=== PATIENT | female | born 1950 | race Caucasian/White ===

== ENCOUNTER 2017-07-18 10:25 | Outpatient (CLI) | payer MEDICARE ==
--- NOTE | 2017-07-22 12:24 | Mammography Report ---
DIGITAL SCREENING MAMMOGRAPHY: 07/18/2017 COMPARISON: 04/12/2011 TECHNIQUE: Bilateral digital CC, exaggerated CC, and MLO projections are performed. FINDINGS: There is extensive fatty replacement of the breast tissue. There is no dominant mass, arc hitectural distortion, skin thickening, suspicious microcalcifications, or significant interval kyle e. IMPRESSION: NEGATIVE. BIRADS CATEGORY 1. SUGGEST ROUTINE FOLLOWUP IN 12 MONTHS. STANDARD QUALIFYING STATEMENTS 1. This examination was reviewed with the aid of Computer-Aided Detection (CAD). 2. A negative or benign imaging report should not delay biopsy if clinically suspicious findings are present. Consider surgical consultation if warranted. More than 5% of cancers are not identified by i maging. 3. Dense breasts may obscure an underlying neoplasm. JOB #: [id number] EXT JOB #:[id number]
== END 2017-07-18 10:26 | disposition home or self-care (01) ==
LOC: DI.N 10:25
PROVIDERS: ATTEND Internal Medicine
DX: Z12.31 Encounter for screening mammogram for malignant neoplasm of breast (principal)
CPT/HCPCS: 77067

== ENCOUNTER 2017-08-08 13:20 | Outpatient (CLI) | payer MEDICARE ==
[2017-08-08] MEDS ORDERED: ALBUTEROL NEB 2.5 MG/3 ML INH ONE (14:00)
== END 2017-08-08 13:21 | disposition home or self-care (01) ==
LOC: RT 13:20
PROVIDERS: ATTEND Internal Medicine
DX: J44.9 Chronic obstructive pulmonary disease, unspecified (principal)
CPT/HCPCS: 93005; 94060; J7613

== ENCOUNTER 2017-10-22 12:16 | Outpatient (CLI) | payer MEDICARE ==
--- NOTE | 2017-10-22 13:49 | XRAY Report ---
EXAM: TWO VIEW CHEST: 10/22/2017 CLINICAL INDICATION: COPD. FINDINGS: Frontal and lateral views of the chest demonstrate a normal cardiac silhouette. The lungs are hyperinflated, compatible with COPD. Mild fibrotic changes are present. No effusion or pneumothorax is seen. IMPRESSION: COPD, WITH MILD FIBROSIS. MD MITCHEL Bingham/JUSTO TD: 10/22/2017 13:46 MTDD
== END 2017-10-22 12:17 | disposition home or self-care (01) ==
LOC: DI 12:16
PROVIDERS: ATTEND Internal Medicine
DX: J44.9 Chronic obstructive pulmonary disease, unspecified (principal)
CPT/HCPCS: 71020

== ENCOUNTER 2018-11-24 08:01 | Outpatient (CLI) | payer MEDICARE ==
--- NOTE | 2018-11-24 14:19 | Ultrasound Report ---
Reason: UNSPECIFIED ABDOMINAL PAIN Procedure Date: 11/24/2018 Accession Number: [id number] / [id number] Procedure: US - Abdomen Complete CPT Code: FULL RESULT: EXAM: ABDOMEN ULTRASOUND EXAM DATE: 11/24/2018 09:28 AM. CLINICAL HISTORY: Unspecified abdominal pain. COMPARISON: None. TECHNIQUE: Real-time scanning was performed with static images obtained. FINDINGS: Liver: Enlarged in size with echogenic parenchyma with focal fatty sparing in the gallbladder region. Right lobe of the liver measures at least 22 cm. Main portal vein flow: Hepatopetal. Gallbladder: Cholelithiasis as well as adenomyomatosis. Biliary System: Common bile duct measures 8 mm. Mildly enlarged. Pancreas: Visualized portion is unremarkable. Kidneys: Right: 11.5 cm longitudinally. Normal. No contour-deforming mass, stones, or hydronephrosis. Left: 9.9 cm longitudinally. Limited visualization with lobular contour and likely prominent column. No stones, or hydronephrosis. Spleen: 11.8 cm. Normal in size and echotexture. Aorta and Inferior Vena Cava: Unremarkable. Other: None. IMPRESSION: Hepatic steatosis. Cholelithiasis with CBD larger caliber than expected, possible choledocholithiasis which is not visualized directly. Adenomyomatosis. RADIA
== END 2018-11-24 08:02 | disposition home or self-care (01) ==
LOC: DI 08:01
PROVIDERS: ATTEND Internal Medicine
DX: K76.0 Fatty (change of) liver, not elsewhere classified (principal); K82.8 Other specified diseases of gallbladder; J44.9 Chronic obstructive pulmonary disease, unspecified
CPT/HCPCS: 71046; 76700

== ENCOUNTER 2018-11-24 08:04 | Outpatient (CLI) | payer MEDICARE ==
--- NOTE | 2018-11-24 16:00 | XRAY Report ---
Reason: CHRONIC OBSTRUCTIVE PULMONARY DISEASE, UNSPECIFIED Procedure Date: 11/24/2018 Accession Number: [id number] / [id number] Procedure: XR - Chest 2 View X-Ray CPT Code: 15874 FULL RESULT: EXAM: CHEST RADIOGRAPHY EXAM DATE: 11/24/2018 08:42 AM. CLINICAL HISTORY: CHRONIC OBSTRUCTIVE PULMONARY DISEASE, UNSPECIFIED. COMPARISON: CHEST 2 VIEW PA/LAT 10/22/2017 12:19 PM. TECHNIQUE: 2 views. FINDINGS: Lungs/Pleura: Bilateral basilar scarring.. No pleural effusion. No pneumothorax. Increased AP diameter and flattened hemidiaphragms Mediastinum: Heart and mediastinal contours are unremarkable. Other: DJD spine. Compressions of lower T-spine IMPRESSION: 1. COPD. 2. No active cardiopulmonary disease RADIA
== END 2018-11-24 08:05 | disposition home or self-care (01) ==
LOC: DI 08:04
PROVIDERS: ATTEND Internal Medicine
DX: J44.9 Chronic obstructive pulmonary disease, unspecified (principal)
CPT/HCPCS: 71046

== ENCOUNTER 2018-12-29 06:08 | Day surgery (SDC) | payer MEDICARE ==
[2018-12-29] MEDS ORDERED: LACTATED RINGERS 1,000 ML IV ONE ×2 (06:31→08:42)
[2018-12-29] MEDS ORDERED: BUPIVACAINE 0.5% PF 30 ML VIAL ONE (06:53)
[2018-12-29] MEDS ORDERED: IOTHALAMATE MEGLUMINE 50 ML VIAL ONE (06:54)
--- NOTE | 2018-12-29 07:01 | ANESTHESIA ---
Pre-Anesthesia VS, & Labs - Diagnosis Cholelithiasis, Umbilical hernia - Procedure Laparoscopic cholecystectomy, umbilical hernia repair Vital Signs: Temp Pulse Resp BP Pulse Ox 36.6 C 103 H 20 144/93 H 94 12/29/18 06:40 12/29/18 06:40 12/29/18 06:40 12/29/18 06:40 12/29/18 06:40 Height 56 ft Weight (kg) 145 kg Body Mass Index 46.1 - NPO Last Fluid Intake: H2O@0500 Last Food Intake: >8h - Is Patient ?: No - Lab Results Current Lab Results: Laboratory Tests 12/29/18 06:49: POC Whole Bld Glucose 133 H Lab results reviewed: Yes Home Medications and Allergies Home Medications: Ambulatory Orders Glucosamine/D3/Boswellia Maddison [Osteo Bi-Flex Tablet] 1 each PO DAILY 12/25/18 Losartan/Hydrochlorothiazide [Losartan-Hctz 100-25 mg Tab] 1 each PO DAILY 12/25/18 Montelukast Sodium 10 mg PO DAILY PRN 12/25/18 Multivitamin [Multiple Vitamins] 1 each PO DAILY 12/25/18 Semaglutide [Ozempic] 0.25 mg SQ ONCE 12/25/18 Levothyroxine [Synthroid] 200 mcg PO QDAC 12/29/18 Albuterol Sulfate [Proair Hfa Inhaler] 1 - 2 puffs INH Q4H PRN 07/18/17 Cholecalciferol (Vitamin D3) [Vitamin D3] 3,000 unit PO DAILY 07/18/17 Levothyroxine Sodium [Synthroid] 200 mcg PO DAILY 07/18/17 Losartan/Hydrochlorothiazide [Losartan-Hctz 100-25 mg Tab] 1 each PO DAILY 07/18/17 Metformin HCl 250 mg PO DAILY 07/18/17 Glucosamine/D3/Boswellia Maddison [Osteo Bi-Flex Tablet] 1 each PO DAILY 12/25/18 Losartan/Hydrochlorothiazide [Losartan-Hctz 100-25 mg Tab] 1 each PO DAILY 12/25/18 Montelukast Sodium 10 mg PO DAILY PRN 12/25/18 Multivitamin [Multiple Vitamins] 1 each PO DAILY 12/25/18 Semaglutide [Ozempic] 0.25 mg SQ ONCE 12/25/18 Allergies/Adverse Reactions: Allergies Allergy/AdvReac Type Severity Reaction Status Date / Time cefaclor [From [facility]] Allergy Severe Edema Verified 07/18/17 15:37 Anes History & Medical History - Anesthetic History Anesthesia Complications: reports: No previous complications Family history of Anesthesia Complications: Denies Family history of Malignant Hyperthermia: Denies - Medical History Cardiovascular: reports: Hypertension Pulmonary: reports: COPD Gastrointestinal: reports: GERD, Hiatal hernia Urinary: reports: None Musculoskeletal: reports: None Endocrine/Autoimmune: reports: Type 2 diabetes, HyPOthyroidism Skin: reports: Eczema Smoking Status: Former smoker - Surgical History Eyes Ears Nose Throat (EENT): Tonsil/Adenoidectomy Gynecologic: Tubal ligation Exam General: Alert, Oriented x3, Cooperative Dental: Dentures full Upper, Dentures full Lower Mouth Openin Fingerbreadth Mallampati classification: II Thyromental Distance: 4-6 cm Respiratory: Lungs clear, Normal breath sounds, No respiratory distress Cardiovascular: Regular rate Neurological: Normal speech Mental/Cognitive Status: Alert/Oriented X3, Normal for patient Plan Anesthesia Type: General Consent for Procedure(s) Verified and Reviewed: Yes Code Status: Attempt Resuscitation ASA classification: 2-Mild systemic disease Is this case an emergency?: No
[2018-12-29] MEDS ORDERED: CLINDAMYCIN IV 900 MG/50 ML IV ONE (08:00)
[2018-12-29] MEDS ORDERED: BUPIVACAINE 0.5% PF 30 ML VIAL SUBQ ONE (08:16)
[2018-12-29] MEDS ORDERED: LIDOCAINE-MPF 2% 5 ML VIAL IM ONE (08:17)
[2018-12-29] MEDS ORDERED: GLYCOPYRROLATE 1 MG/5 ML VIAL IVP ONE (08:17)
[2018-12-29] MEDS ORDERED: ROCURONIUM 50 MG/5 ML VIAL IVP ONE (08:17)
[2018-12-29] MEDS ORDERED: PROPOFOL 200 MG/20 ML VIAL IVP ONE (08:17)
[2018-12-29] MEDS ORDERED: KETOROLAC 30 MG/ML VIAL IVP ONE (08:17)
[2018-12-29] MEDS ORDERED: ePHEDrine 50 MG/ML VIAL IVP ONE (08:17)
[2018-12-29] MEDS ORDERED: PHENYLEPHRINE 50 MG/5 ML VIAL IV ONE (08:17)
[2018-12-29] MEDS ORDERED: NEOSTIGMINE 1 MG/1 ML 10 ML MDV IVP ONE (08:17)
[2018-12-29] MEDS ORDERED: ONDANSETRON 4 MG/2 ML VIAL IVP ONE (08:17)
[2018-12-29] MEDS ORDERED: fentaNYL 250 MCG/5 ML VIAL IVP ONE (08:17)
[2018-12-29] MEDS ORDERED: MIDAZOLAM 2 MG/2 ML VIAL IVP ONE (08:17)
--- NOTE | 2018-12-29 09:23 | OPERATIVE REPORT ---
Operative Report - General Procedure Date: 12/29/18 Planned Procedure: Laparoscopic cholecystectomy, possible open cholecystectomy, possible commo Pre-Op Diagnosis: Symptomatic cholelithiasis, umbilical hernia Procedure Performed: Laparoscopic cholecystectomy and supraumbilical herniorrhaphy without mesh Post Op Diagnosis: Symptomatic cholelithiasis, supraumbilical hernia, very small (no need to f - Procedure Note Primary Surgeon: Mitchell Ernandez MD Anesthesia Provider: Geoff Barksdale CRNA Anesthesia Technique: General ET tube, Local (30 mL of half percent Marcaine) IV Fluids (mL): 1,200 Estimated Blood Loss (mL): 10 Drain/Tube Type: Other (None.) Complications: None. - Other Other Information/Narrative: OPERATIVE DESCRIPTION/REPORT: After verbal and written informed consent was obtained detailing the risks of infection, bleeding requiring transfusion with its risks, common bile duct injury, and , as well as the markedly increased possibility of a recurrent umbilical hernia, and after I met with the patient confirming the surgery, the patient was brought to the operative suite and placed supine on the operating table. Great care was taken to avoid pressure points to prevent pressure necrosis or nerve injury. Monitoring devices were applied along with TEDs and pneumatic compressive stockings (to prevent DVT). The patient received preoperative antibiotics for surgical prophylaxis. Geoff Barksdale CRNA sedated and anesthetized the patient for the entire procedure. The patient was prepped and draped in the usual sterile manner. A "time in" then confirmed that the patient was identified with 3 identifiers (name, date and medical record number), the history and physical was in the chart, the signed consent confirming the procedure was in the chart, the patient was in the correct position, the aforementioned prophylactic measures were in place or given, we had the correct personnel and equipment to complete the procedure and that anesthesia, surgery and nursing were given an opportunity to express any concerns. With the agreement of everyone in the room, we proceeded with the operation. The initial incision was just above the umbilicus and dissection to a moderate size hernia was completed using blunt dissection. The hernia was dissected back to the fascial defect and the hernia sac as well as the included omentum was excised and sent for pathologic evaluation. Digital examination revealed that there was a extraordinarily tiny umbilical hernia that did not admit even the tip of my finger and as such I opted not to repair it. The hernia defect was too large to allow for placement of the 12 mm blunt-tipped balloon tipped port even with the balloon inflated and as such I started closing the hernia defect using 0 Prolene in a [id number] fashion. Even though I closed this defect enough to admit the 12 mm blunt-tipped port once the port was placed in the balloon inflated there was a constant leak of insufflating carbon dioxide. I attempted to stem this leak with placement of Xeroform gauze. I was mildly successful. The abdominal cavity was insufflated with carbon dioxide to steady- state pressure of 15 mmHg. Three additional 5 mm ports were placed in standard location for laparoscopic cholecystectomy (subxiphoid and 2 right subcostal) under direct vision of the 30 degree laparoscope and without incident. The p atient was then placed in reverse Trendelenburg position and was rotated slightly to their left. Of note, the liver showed all the hallmarks of fatty liver. It was exceedingly thick and large. This of course limited how the gallbladder could be retracted. The patient's body habitus also markedly restricted motion within the abdomen. The gallbladder fundus was grasped with an atraumatic grasper. Multiple adhesions had to be taken down by blunt and sharp dissection along with electrocautery. Eventually, we identified the infundibulum, and this was then grasped and retracted inferior and laterally. Dissection was then begun in the angle of Calot. The cystic duct and (slightly medially and posteriorly) cystic artery were clearly identified. The critical view was obtained. Two clips proximally and one clip distally were used to control both the cystic duct and cystic artery. The clips were carefully placed to avoid occluding the juncture with the common bile duct. Both the cystic duct and then the cystic artery were then transected with laparoscopic deb. The gallbladder was then removed from its fossa in a retrograde fashion using electrocautery. With the 30 degree 5 mm scope in the subxiphoid position, the gallbladder was placed in an EndoCatch bag to be extracted through the 12 mm port site. I irrigated the right upper quadrant with a liter of warm sterile saline, and the area was aspirated dry. I inspected the gallbladder fossa and there was no bleeding or bile leak. Clips on the cystic duct and cystic artery appeared to be secure. I briefly visually explored the abdomen. There was no other evidence of overt pathology. I injected the port sites at the peritoneal, fascial, and skin levels under direct vision with 0.5% Marcaine. All ports and the EndoCatch containing the gallbladder were removed. Following gallbladder removal, the remaining carbon dioxide was expelled from the abdomen. The fascia at the supraumbilical hernia was further reapproximated using 2 bupqtg-pf-pubfi 0 Prolene sutures thus repairing the hernia. Since I did not use mesh (due to the risk of infection) and since there is a markedly higher chance of recurrence due to the patient's BMI of over 50 this repair was oversewn with 0 PDS in a pxyiig-nl-esqox fashion. The subcutaneous tissue at the supraumbilical site was approximated using interrupted 0 PDS sutures. The skin at each port site was approximated using a subcuticular 4-0 Monocryl. The surgical count of instruments, needles and sponges was reported as correct twice. Mastisol, Steri-Strips and sterile surgical dressings were applied. The patient was then awakened from anesthesia, extubated, and having tolerated the procedure well, was transported to the recovery room. No complications were en countered. A "time out" confirmed the operation performed, the fluids given, the estimated blood loss and anesthesia, surgery and nursing were given an opportunity to express any concerns. TRDataon disclaimer: This document was created in part using voice recognition technology. Because of the inherent limitations of the system ([employer] user manual states that the licensee understands that speech recognition is a statistical process and that recognition errors are inherent in the process), occasional same sounding word substitutions and grammatical errors do occur and persist despite proofreading. Please read this document for context.
[2018-12-29] MEDS ORDERED: HYDROmorphone 0.5 MG/0.5 ML SYRINGE IVP PRN (09:36)
[2018-12-29] MEDS ORDERED: HYDROcod/ACETAM 5/325 MG TABLET PO PRN (09:36)
[2018-12-29] MEDS ORDERED: ONDANSETRON 4 MG/2 ML VIAL IVP PRN (09:36)
[2018-12-29 10:39] VITALS: BP 100/60
== END 2018-12-29 06:09 | disposition home or self-care (01) ==
LOC: SDS 06:08
PROVIDERS: ATTEND Surgery
PROC: 0FT44ZZ Resection of Gallbladder, Percutaneous Endoscopic Approach (ICD-10-PCS; principal; 2018-12-29 07:30)
DX: K80.10 Calculus of gallbladder with chronic cholecystitis without obstruction (principal); K42.9 Umbilical hernia without obstruction or gangrene; E66.01 Morbid (severe) obesity due to excess calories; Z68.43 Body mass index [BMI] 50.0-59.9, adult; I10 Essential (primary) hypertension; E11.9 Type 2 diabetes mellitus without complications; J43.9 Emphysema, unspecified; Z87.891 Personal history of nicotine dependence
CPT/HCPCS: 47562; A9270; J3010; J7120

== ENCOUNTER 2019-05-11 15:03 | Emergency (ER) | payer MEDICARE ==
[2019-05-11 15:56] LABS: BASOPHILS # (AUTO) 0.1 10^3/uL (0.0-0.1); BASOPHILS % (AUTO) 0.5 %; EOSINOPHILS # (AUTO) 0.3 10^3/uL (0.0-0.7); EOSINOPHILS % (AUTO) 3.1 %; HGB - HEMOGLOBIN 12.3 g/dL (12.0-16.0); LYMPHOCYTES # (AUTO) 1.6 10^3/uL (1.5-3.5); LYMPHOCYTES % (AUTO) 15.6 %; MEAN CORPUSCULAR HEMOGLOBIN 30.1 pg (27.0-31.0); MEAN CORPUSCULAR HGB CONC 31.2 g/dL (32.0-36.0); MEAN CORPUSCULAR VOLUME 96.6 fL (81.0-99.0); MONOCYTES # (AUTO) 0.8 10^3/uL (0.0-1.0); MONOCYTES % (AUTO) 7.8 %; NEUTROPHILS # (AUTO) 7.4 10^3/uL (1.5-6.6); NEUTROPHILS % (AUTO) 72.3 %; PLT - PLATELET COUNT 267 10^3/uL (130-450); RED BLOOD COUNT 4.08 10^6/uL (4.20-5.40); RED CELL DISTRIBUTION WIDTH 14.1 % (12.0-15.0); WHITE BLOOD COUNT 10.2 x10^3/uL (4.8-10.8)
[2019-05-11] MEDS ORDERED: IPRATROPIUM/ALBUTEROL 3 ML NEB INH STA (16:09)
[2019-05-11 16:14] LABS: ALBUMIN 3.9 g/dL (3.2-5.5); BILIRUBIN,TOTAL 0.7 mg/dL (0.2-1.0); CALCIUM 9.7 mg/dL (8.5-10.3); CREATININE 0.9 mg/dL (0.4-1.0); TOTAL PROTEIN 7.8 g/dL (6.7-8.2)
[2019-05-11 16:38] VITALS: BP 133/60
[2019-05-11] MEDS ORDERED: predniSONE 20 MG TABLET PO STA (16:40)
[2019-05-11] MEDS ORDERED: ALBUTEROL NEB 2.5 MG/3 ML INH STA (16:40)
--- NOTE | 2019-05-11 16:46 | ED Physician Documentation ---
PD HPI DYSPNEA - Stated complaint Stated Complaint: SOA - Chief complaint Chief Complaint: Resp - History obtained from History obtained from: Patient - History of Present Illness Timing - onset: How many weeks ago (1) Timing - onset during: Rest Timing - duration: Weeks (1) Timing - details: Gradual onset Pain level max: 0 Pain level now: 0 Inciting event(s): URI Improved by: Inhaler/neb, Rest Worsened by: Exertion Associated symptoms: Cough, Wheezing. No: Fever, Hemoptysis, Palpitations, Diaphoresis, Bilateral edema Similar symptoms before: Diagnosis (COPD) Recently seen: Clinic (started on azithromycin last week for COPD flare.) Review of Systems Ten Systems: 10 systems reviewed and negative Constitutional: denies: Fever, Chills Throat: denies: Sore throat GI: denies: Vomiting, Diarrhea, Hematemesis Skin: denies: Rash Musculoskeletal: denies: Neck pain, Back pain Neurologic: denies: Headache PD PAST MEDICAL HISTORY - Past Medical History Cardiovascular: Hypertension Respiratory: COPD Endocrine/Autoimmune: Type 2 diabetes, HyPOthyroidism GI: GERD, Hiatal hernia : None HEENT: Chronic vision loss, Other Psych: Claustrophobia Musculoskeletal: None Derm: Eczema - 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 HEENT: Tonsil/Adenoidectomy - Present Medications Home Medications: Ambulatory Orders Medication Instructions Recorded Confirmed Albuterol Sulfate [Proair Hfa 1 - 2 puffs INH Q4H PRN 07/18/17 12/29/18 Inhaler] Cholecalciferol (Vitamin D3) 3,000 unit PO DAILY 07/18/17 12/29/18 [Vitamin D3] Levothyroxine Sodium [Synthroid] 200 mcg PO DAILY 07/18/17 12/25/18 Losartan/Hydrochlorothiazide 1 each PO DAILY 07/18/17 12/25/18 [Losartan-Hctz 100-25 mg Tab] Metformin HCl 250 mg PO DAILY 07/18/17 12/29/18 Glucosamine/D3/Boswellia Maddison 1 each PO DAILY 12/25/18 12/29/18 [Osteo Bi-Flex Tablet] Losartan/Hydrochlorothiazide 1 each PO DAILY 12/25/18 12/29/18 [Losartan-Hctz 100-25 mg Tab] Montelukast Sodium 10 mg PO DAILY PRN 12/25/18 12/29/18 Multivitamin [Multiple Vitamins] 1 each PO DAILY 12/25/18 12/29/18 Semaglutide [Ozempic] 0.25 mg SQ ONCE 12/25/18 12/25/18 Levothyroxine [Synthroid] 200 mcg PO QDAC 12/29/18 12/29/18 predniSONE [Deltasone] 10 mg PO [id number] #42 tab 05/11/19 - Allergies Allergies/Adverse Reactions: Allergies Allergy/AdvReac Type Severity Reaction Status Date / Time cefaclor [From Ceclor] Allergy Severe Edema Verified 07/18/17 15:37 - Social History Smoking Status: Former smoker PD ED PE NORMAL - Vitals Vital signs reviewed: Yes - General General: Alert and oriented X 3, No acute distress, Well developed/nourished - HEENT HEENT: PERRL, Moist mucous membranes - Neck Neck: Supple, no meningeal sign - Cardiac Cardiac: RRR - Respiratory Respiratory: No respiratory distress, Other (Wheezing bilaterally) - Abdomen Abdomen: Soft, Non tender, Non distended - Derm Derm: Warm and dry - Extremities Extremities: No calf tenderness / cord - Neuro Neuro: Alert and oriented X 3 - Psych Psych: Normal mood, Normal affect Results - Vitals Vitals: Vital Signs - 24 hr 05/11/19 05/11/19 05/11/19 15:06 16:38 17:10 Temperature 36.6 C Heart Rate 95 75 81 Respiratory 20 18 20 Rate Blood Pressure 146/96 H 133/60 H O2 Saturation 92 99 Oxygen O2 Source Room air - Labs Labs: Laboratory Tests 05/11/19 05/11/19 05/11/19 15:50 15:50 15:50 WBC 10.2 RBC 4.08 L Hgb 12.3 Hct 39.4 MCV 96.6 MCH 30.1 MCHC 31.2 L RDW 14.1 Plt Count 267 MPV 9.0 Neut # (Auto) 7.4 H Lymph # (Auto) 1.6 Carbon # (Auto) 0.8 Eos # (Auto) 0.3 Baso # (Auto) 0.1 Absolute Nucleated RBC 0.00 Nucleated RBC % 0.0 Sodium 140 Potassium 3.9 Chloride 98 L Carbon Dioxide 30 Anion Gap 12.0 BUN 19 Creatinine 0.9 Estimated GFR (MDRD) 62 L Glucose 133 H Calcium 9.7 Total Bilirubin 0.7 AST 20 ALT 26 Alkaline Phosphatase 93 Troponin I < 0.04 Total Protein 7.8 Albumin 3.9 Globulin 3.9 Albumin/Globulin Ratio 1.0 Lipase 28 - Rads (name of study) cxr Radiology: Prelim report reviewed, EMP read contemporaneously, See rad report (No acute cardiopulmonary abnormality) PD MEDICAL DECISION MAKING - ED course Complexity details: reviewed results, re-evaluated patient, considered differential, d/w patient ED course: 69-year-old female with a COPD flare. Not hypoxic. No pneumonia on chest x-ray . No fevers. Given prednisone and albuterol treatments here. Will prescribe steroids for home. We will follow-up with her doctor. Patient counseled regarding signs and symptoms for which I believe and urgent re-evaluation would be necessary. Patient with good understanding of and agreement to plan and is comfortable going home at this time This document was made in part using voice recognition software. While efforts are made to proofread this document, sound alike and grammatical errors may occur. Patient is very well-appearing, nontoxic Departure - Departure Disposition: 01 Home, Self Care Clinical Impression: COPD exacerbation Condition: Good Instructions: ED COPD Flare Follow-Up: Michael Chew MD [Primary Care Provider] - Within 1 week Prescriptions: predniSONE [Deltasone] 10 mg PO [id number] #42 tab Comments: Start on the steroids. Return if you worsen. Follow-up with your doctor for further evaluation and care. Continue your inhalers at home. Your x-ray does not show pneumonia today. Discharge Date/Time: 05/11/19 17:45
--- NOTE | 2019-05-11 17:06 | XRAY Report ---
Reason: cough Procedure Date: 05/11/2019 Accession Number: [id number] / [id number] Procedure: XR - Chest 2 View X-Ray CPT Code: 11445 FULL RESULT: EXAM: CHEST RADIOGRAPHY EXAM DATE: 05/11/2019 04:15 PM. CLINICAL HISTORY: Cough. COMPARISON: CHEST 2 VIEW 11/24/2018 8:30 AM. TECHNIQUE: 2 views. FINDINGS: Lungs/Pleura: No focal consolidation. Mild interstitial prominence. No pleural effusion. No pneumothorax. Lungs are mildly hyperinflated. Mediastinum: Heart and mediastinal contours are normal. Other: None. IMPRESSION: No acute cardiopulmonary abnormality. RADIA
== END 2019-05-11 17:45 | disposition home or self-care (01) ==
LOC: ED 15:03
DX: J44.1 Chronic obstructive pulmonary disease with (acute) exacerbation (principal); Z87.891 Personal history of nicotine dependence; I10 Essential (primary) hypertension; E11.9 Type 2 diabetes mellitus without complications; Z79.84 Long term (current) use of oral hypoglycemic drugs
CPT/HCPCS: 36415; 71046; 80053; 83690; 84484; 85025; 94640; 99284; J7512

== ENCOUNTER 2019-07-01 13:39 | Outpatient (CLI) | payer MEDICARE ==
--- NOTE | 2019-07-02 08:44 | DEXA Report ---
Reason: UNSPECIFIED MENOPAUSAL AND PERIMENOPAUSAL DISORDER Procedure Date: 07/01/2019 Accession Number: [id number] / [id number] Procedure: DEX - Dexa Spine and/or Hip CPT Code: FULL RESULT: EXAM: Dexa Spine and/or Hip DATE: 07/01/2019 2:10 PM CLINICAL HISTORY: UNSPECIFIED MENOPAUSAL AND PERIMENOPAUSAL DISORDER TECHNIQUE: Dual energy x-ray absorptiometry (DXA) was performed on a [employer] System. Regions measured are the AP Spine, femoral neck, and if needed forearm. COMPARISON: None. In accordance with the International Society for Clinical Densitometry (ISCD) guidelines, data from previous exams may be reanalyzed using current recommendations and techniques. This is done to allow a more accurate basis for comparison with the current study. FINDINGS: The data for the lumbar spine is as follows: BMD (g/cm/cm) T-SCORE Z-SCORE REGION L1 1.291 1.3 1.9 L2 1.378 1.5 2.0 L3 1.257 0.5 1.0 L4 1.294 0.8 1.3 TOTAL 1.306 1.0 1.6 NOTE: All evaluable vertebrae are used for classification The data for the hip is as follows: BMD (g/cm/cm) T-SCORE Z-SCORE REGION Neck 0.839 -1.4 -0.4 TOTAL 0.972 -0.3 0.4 NOTE: The femoral neck or total proximal femur, whichever is lowest, is used for classification. IMPRESSION: THE WHO CLASSIFICATION BASED ON THE INTERNATIONAL REFERENCE STANDARD IS OSTEOPENIA. THE FRACTURE RISK IS INCREASED. Please note that the assessment of osteopenia is based on the isolated finding in the femoral neck. RECOMMENDATION: Patients with diagnosis of osteoporosis or osteopenia should have regular bone mineral density assessment. For those eligible for Medicare, routine testing is allowed once every 2 years. Testing frequency can be increased for patients who have rapidly progressing disease or for those who are receiving medical therapy to restore bone mass. COMMENT: World Health Organization (WHO) definitions for osteoporosis and osteopenia: NORMAL BMD: T-score at -1.0 or higher, fracture risk is low OSTEOPENIA BMD: T-score between -1.0 and -2.5, fracture risk is increased. OSTEOPOROSIS BMD: T-score at -2.5 or lower, fracture risk is high. National Osteoporosis Foundation recommends: 1. Obtain adequate dietary calcium (at least 1200 mg per day) and vitamin D (400-800 international units per day). 2. Participate, as appropriate, in regular weightbearing and muscle-strengthening exercise. 3. Avoid tobacco use and reduce alcohol and caffeine intake. 4. For more detailed information see the website at www.NOF.org.
== END 2019-07-01 13:40 | disposition home or self-care (01) ==
LOC: DI 13:39
PROVIDERS: ATTEND Internal Medicine
DX: M85.88 Other specified disorders of bone density and structure, other site (principal)
CPT/HCPCS: 77080

== ENCOUNTER 2021-04-25 16:44 | Outpatient (CLI) | payer MEDICARE | END 2021-04-25 16:45 | disposition critical access hospital (66) | LOC: EMS 16:44 | DX: R06.02 Shortness of breath (principal) | CPT/HCPCS: A0425; A0427 ==

== ENCOUNTER 2021-04-25 17:04 | Emergency (ER) | payer BC, MEDICARE ==
[2021-04-25 17:27] LABS: BASOPHILS % (AUTO) 0.5 %; EOSINOPHILS # (AUTO) 0.1 10^3/uL (0.0-0.7); EOSINOPHILS % (AUTO) 1.5 %; HCT - HEMATOCRIT 40.2 % (37.0-47.0); HGB - HEMOGLOBIN 12.3 g/dL (12.0-16.0); LYMPHOCYTES # (AUTO) 1.5 10^3/uL (1.5-3.5); LYMPHOCYTES % (AUTO) 19.1 %; MEAN CORPUSCULAR HEMOGLOBIN 29.4 pg (27.0-31.0); MEAN CORPUSCULAR HGB CONC 30.6 g/dL (32.0-36.0); MEAN CORPUSCULAR VOLUME 96.2 fL (81.0-99.0); MEAN PLATELET VOLUME 8.7 fL (7.9-10.8); MONOCYTES # (AUTO) 0.7 10^3/uL (0.0-1.0); MONOCYTES % (AUTO) 8.2 %; NEUTROPHILS # (AUTO) 5.7 10^3/uL (1.5-6.6); NEUTROPHILS % (AUTO) 70.5 %; PLT - PLATELET COUNT 237 10^3/uL (130-450); RED BLOOD COUNT 4.18 10^6/uL (4.20-5.40); RED CELL DISTRIBUTION WIDTH 15.4 % (12.0-15.0); WHITE BLOOD COUNT 8.1 x10^3/uL (4.8-10.8)
[2021-04-25 17:40] LABS: ALBUMIN 3.6 g/dL (3.2-5.5); ALBUMIN/GLOBULIN RATIO 0.9 (1.0-2.2); BILIRUBIN,TOTAL 0.7 mg/dL (0.2-1.0); CALCIUM 9.3 mg/dL (8.5-10.3); CREATININE 0.9 mg/dL (0.4-1.0); POTASSIUM 3.3 mmol/L (3.5-5.0); TOTAL PROTEIN 7.5 g/dL (6.7-8.2)
[2021-04-25] MEDS ORDERED: ALBUTEROL NEB 2.5 MG/3 ML INH STA (17:55)
[2021-04-25] MEDS ORDERED: IPRATROPIUM/ALBUTEROL 3 ML NEB INH STA (17:55)
--- NOTE | 2021-04-25 17:59 | ED Physician Documentation ---
History of Present Illness - Stated complaint Stated Complaint: SOA - Chief complaint Chief Complaint: Resp - Additonal information Additional information: 71-year-old female presents the emergency department for evaluation of dyspnea and shortness of air with exertion. She reports that symptoms of shortness of breath began about 3 days ago. She has had some associated productive cough but no fevers. She has a history of COPD and was previously taking Dulera but has not taken it for quite some time as she was unable to get it refilled through her primary care provider. She also has a history of chronic lower extremity edema. She was started on Lasix about 1 month ago but has not taken it for the last week as it makes her urinate too much. She denies chest pain or fevers. No abdominal pain nausea vomiting or dysuria. She does use home O2 at night Review of Systems Constitutional: denies: Fever, Chills Eyes: reports: Reviewed and negative Ears: reports: Reviewed and negative Nose: reports: Reviewed and negative Throat: reports: Reviewed and negative Cardiac: reports: Palpitations, Pedal edema. 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 : None HEENT: Chronic vision loss, Other Psych: Claustrophobia Musculoskeletal: None Derm: Eczema - Past Surgical History Past Surgical History: Yes General: Hiatal hernia repair /MAGNETO REPAIRER: Tubal ligation HEENT: Tonsil/Adenoidectomy - Present Medications Home Medications: Ambulatory Orders Medication Instructions Recorded Confirmed Albuterol Sulfate [Proair Hfa 1 - 2 puffs INH Q4H PRN 07/18/17 12/29/18 Inhaler] Cholecalciferol (Vitamin D3) 3,000 unit PO DAILY 07/18/17 12/29/18 [Vitamin D3] Levothyroxine Sodium [Synthroid] 200 mcg PO DAILY 07/18/17 12/25/18 Losartan/Hydrochlorothiazide 1 each PO DAILY 07/18/17 12/25/18 [Losartan-Hctz 100-25 mg Tab] Metformin HCl 250 mg PO DAILY 07/18/17 12/29/18 Glucosamine/D3/Boswellia Maddison 1 each PO DAILY 12/25/18 12/29/18 [Osteo Bi-Flex Tablet] Losartan/Hydrochlorothiazide 1 each PO DAILY 12/25/18 12/29/18 [Losartan-Hctz 100-25 mg Tab] Montelukast Sodium 10 mg PO DAILY PRN 12/25/18 12/29/18 Multivitamin [Multiple Vitamins] 1 each PO DAILY 12/25/18 12/29/18 Semaglutide [Ozempic] 0.25 mg SQ ONCE 12/25/18 12/25/18 Levothyroxine [Synthroid] 200 mcg PO QDAC 12/29/18 12/29/18 predniSONE [Deltasone] 10 mg PO [id number] #42 tab 05/11/19 Doxycycline Hyclate 100 mg PO BID #14 04/25/21 Mometasone/Formoterol [Dulera 100 13 gm IH DAILY #1 04/25/21 Mcg-5 Mcg Inhaler] predniSONE [Deltasone] 40 mg PO DAILY 5 Days #10 tablet 04/25/21 - Allergies Allergies/Adverse Reactions: Allergies Allergy/AdvReac Type Severity Reaction Status Date / Time cefaclor [From [facility]] Allergy Severe Edema Verified 04/25/21 17:18 - Social History Does the pt smoke?: No Smoking Status: Former smoker Does the pt drink ETOH?: Yes Does the pt have substance abuse?: No - Immunizations Immunizations are current?: Yes - POLST Patient has POLST: No PD ED PE EXPANDED - General General: Alert, No acute distress, Other (obese) - Cardiac Cardiac: Regular Rate, Murmur Present, Radial strong equal, Pedal strong equal, Cap refill < 2 sec - Respiratory Respiratory: Clear to ausultation rad, Wheezing. No: Distress, Labored - Abdomen Abdomen: Normal Bowel sounds, Tender to palpation - Extremities Extremities: Normal, Pedal edema bilateral (Significant bilateral lower extremity edema with compression stockings in place. Warm feet 2+ DP pulses bilaterally). No: Deformity, Tenderness - Neuro Neuro: Alert and Oriented X 3, CNII-XII intact - GCS Eye Opening: Spontaneous Motor: Abnormal Flexion Verbal: Oriented Total: 12 Results - Vitals Vitals: Vital Signs - 24 hr 04/25/21 04/25/21 04/25/21 17:00 17:18 18:10 Temperature 36.8 C 36.8 C Heart Rate 81 72 64 Respiratory 20 24 18 Rate Blood Pressure 135/77 H 138/67 H O2 Saturation 96 99 Oxygen O2 Source Nasal cannula - EKG (time done) 1721 Rate: Rate (enter#) (82) - Labs Labs: Laboratory Tests 04/25/21 04/25/21 04/25/21 17:22 17:22 17:22 WBC 8.1 RBC 4.18 L Hgb 12.3 Hct 40.2 MCV 96.2 MCH 29.4 MCHC 30.6 L RDW 15.4 H Plt Count 237 MPV 8.7 Neut # (Auto) 5.7 Lymph # (Auto) 1.5 Tyrrell # (Auto) 0.7 Eos # (Auto) 0.1 Baso # (Auto) 0.0 Absolute Nucleated RBC 0.00 Nucleated RBC % 0.0 Sodium 141 Potassium 3.3 L Chloride 97 L Carbon Dioxide 34 H Anion Gap 10.0 BUN 16 Creatinine 0.9 Estimated GFR (MDRD) 61 L Glucose 162 H Calcium 9.3 Total Bilirubin 0.7 AST 15 ALT 16 Alkaline Phosphatase 103 Troponin I High Sens 9.2 B-Natriuretic Peptide Total Protein 7.5 Albumin 3.6 Globulin 3.9 Albumin/Globulin Ratio 0.9 L Lipase 27 04/25/21 17:22 WBC RBC Hgb Hct MCV MCH MCHC RDW Plt Count MPV Neut # (Auto) Lymph # (Auto) Tyrrell # (Auto) Eos # (Auto) Baso # (Auto) Absolute Nucleated RBC Nucleated RBC % Sodium Potassium Chloride Carbon Dioxide Anion Gap BUN Creatinine Estimated GFR (MDRD) Glucose Calcium Total Bilirubin AST ALT Alkaline Phosphatase Troponin I High Sens B-Natriuretic Peptide 86 Total Protein Albumin Globulin Albumin/Globulin Ratio Lipase - Rads (name of study) CXR Radiology: Final report received (no acute findings) PD MEDICAL DECISION MAKING - ED course Complexity details: reviewed results, re-evaluated patient, d/w patient ED course: 71-year-old female presents the emergency department with 3 days exertional dyspnea and shortness of air. This is in the setting of a history of COPD. She had stopped taking her Lasix because she did not like urinating so much. In addition to that she has not had her Dulera for about a month as she was unable to see the doctor for a refill Chest x-ray does not reveal acute abnormality. BNP and Troponin are not elevated. Patient was given 40 mg of Lasix here in the emergency department as well as albuterol and Atrovent with marked improvement in her symptoms. She is not hypoxic. Baseline saturations of 92 to 94%. She does occasionally wear oxygen at home. Patient will be discharged with a prescription doxycycline observation. Will refill her Dulera and advised compliance with Lasix. Close follow-up with PCP advised. Emergent return precautions discussed Departure - Departure Disposition: Home, Self Care Clinical Impression: COPD exacerbation Condition: Stable Record reviewed to determine appropriate education?: Yes Instructions: COPD Dc Follow-Up: Michael Chew MD [Primary Care Provider] - Prescriptions: predniSONE [Deltasone] 40 mg PO DAILY 5 Days #10 tablet Doxycycline Hyclate 100 mg PO BID #14 Mometasone/Formoterol [Dulera 100 Mcg-5 Mcg Inhaler] 13 gm IH DAILY #1 Comments: Shey you are seen today in the ER did not please fill the prescription for the prednisone and begin taking as directed tomorrow. Your first dose was given here in the ER. Also fill the prescription for the antibiotics. It is important that you continue to take your furosemide as that will help reduce the work of for your heart. Discuss this ED visit with your primary care provider. I have refilled your Dulera today.. If you have worsenign shortness of breath, fevers, chest pain or difficulty breathing please return to the ED
[2021-04-25] MEDS ORDERED: FUROSEMIDE 40 MG/4 ML VIAL IVP STA (18:19)
--- NOTE | 2021-04-25 18:28 | XRAY Report ---
PROCEDURE: Chest 1 View X-Ray INDICATIONS: Chest Pain TECHNIQUE: One view of the chest was acquired. COMPARISON: May 11, 2019 FINDINGS: Surgical changes and devices: None. Lungs and pleura: No pleural effusions or pneumothorax. Lungs are clear. Mediastinum: Mediastinal contours appear normal. Heart size is normal. Bones and chest wall: No suspicious bony lesions. Overlying soft tissues appear unremarkable. IMPRESSION: No acute cardiopulmonary findings Reviewed by: Bryson Feng MD on 04/25/2021 5:27 PM AKDT Approved by: Bryson Feng MD on 04/25/2021 5:27 PM AKDT Station ID: [id number]
[2021-04-25] MEDS ORDERED: predniSONE 20 MG TABLET PO STA (20:04)
[2021-04-25 20:38] VITALS: BP 129/76
== END 2021-04-25 20:22 | disposition home or self-care (01) ==
LOC: EDUNIT# → ED 17:04 → SUPCPDRO 17:04 → ED 20:22
DX: J44.1 Chronic obstructive pulmonary disease with (acute) exacerbation (principal); R60.0 Localized edema; I49.3 Ventricular premature depolarization; I10 Essential (primary) hypertension; E11.9 Type 2 diabetes mellitus without complications; Z79.84 Long term (current) use of oral hypoglycemic drugs; Z87.891 Personal history of nicotine dependence
CPT/HCPCS: 36415; 71045; 80053; 83690; 83880; 84484; 85025; 93005; 94640; 96374; 99283; 99284; J7512

== ENCOUNTER 2021-07-11 18:58 | Outpatient (CLI) | payer MEDICARE | END 2021-07-11 18:59 | disposition critical access hospital (66) | LOC: EMS 18:58 | DX: R60.0 Localized edema (principal); M79.662 Pain in left lower leg; M79.661 Pain in right lower leg; R23.8 Other skin changes | CPT/HCPCS: A0425; A0429 ==

== ENCOUNTER 2021-07-11 19:17 | Inpatient (IN) | payer MEDICARE ==
--- NOTE | 2021-07-11 19:34 | ED Physician Documentation ---
PD HPI DYSPNEA - Stated complaint Stated Complaint: WOUND EDEMA, CAN'T AMBULATE - Chief complaint Chief Complaint: Wound - History obtained from History obtained from: Patient - History of Present Illness Timing - onset: How many weeks ago (6) Timing - onset during: Light activity (Had been noting dyspnea on exertion which has become progressively worse and now it is even dyspnea at rest for the last week or so. Increasing edema in both legs and pain in her heels.) Timing - duration: Weeks (6 weeks progressive KRAUSE, orthopnea, leg edema. Increasing despite now regular diuretic use.) Timing - details: Gradual onset Inciting event(s): No: Out of meds, URI Improved by: O2, Inhaler/neb. No: Lasix (she says not getting much extra urination with her Lasix the past week or so.) Associated symptoms: Wheezing, Bilateral edema (with redness wrapped around both lower legs, and now 1 week or so of progressively worse pain in the heels.). No: Fever, Cough, Hemoptysis, Unilateral edema Recently seen: Emergency Dept (11 weeks ago on April 25.) Review of Systems Constitutional: denies: Fever, Chills Respiratory: reports: Dyspnea, Wheezing, Other (orthopnea) GI: reports: Abdominal Swelling, Nausea, Bloody / black stool (noted some red blood with wiping after formed BMs. No melena.). denies: Vomiting, Constipation, Diarrhea Skin: reports: Rash (redness around both lower legs with blistering. No purulence.) Musculoskeletal: reports: Extremity pain (pain in both heels the past week, progressively worse.) Neurologic: reports: Generalized weakness. denies: Focal weakness, Numbness PD PAST MEDICAL HISTORY - Past Medical History Cardiovascular: Hypertension, Other (no history of MO nor CHF per patient. 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 : None HEENT: Chronic vision loss, Other Psych: Claustrophobia Musculoskeletal: None Derm: Eczema - Past Surgical History Past Surgical History: Yes General: Hiatal hernia repair /RN BUILDING: Tubal ligation HEENT: Tonsil/Adenoidectomy - Present Medications Home Medications: Ambulatory Orders Medication Instructions Recorded Confirmed Albuterol Sulfate [Proair Hfa 1 - 2 puffs INH Q4H PRN 07/18/17 12/29/18 Inhaler] Cholecalciferol (Vitamin D3) 3,000 unit PO DAILY 07/18/17 12/29/18 [Vitamin D3] Levothyroxine Sodium [Synthroid] 200 mcg PO DAILY 07/18/17 12/25/18 Losartan/Hydrochlorothiazide 1 each PO DAILY 07/18/17 12/25/18 [Losartan-Hctz 100-25 mg Tab] Metformin HCl 250 mg PO DAILY 07/18/17 12/29/18 Glucosamine/D3/Boswellia Maddison 1 each PO DAILY 12/25/18 12/29/18 [Osteo Bi-Flex Tablet] Losartan/Hydrochlorothiazide 1 each PO DAILY 12/25/18 12/29/18 [Losartan-Hctz 100-25 mg Tab] Montelukast Sodium 10 mg PO DAILY PRN 12/25/18 12/29/18 Multivitamin [Multiple Vitamins] 1 each PO DAILY 12/25/18 12/29/18 Semaglutide [Ozempic] 0.25 mg SQ ONCE 12/25/18 12/25/18 Levothyroxine [Synthroid] 200 mcg PO QDAC 12/29/18 12/29/18 predniSONE [Deltasone] 10 mg PO [id number] #42 tab 05/11/19 Doxycycline Hyclate 100 mg PO BID #14 04/25/21 Mometasone/Formoterol [Dulera 100 13 gm IH DAILY #1 04/25/21 Mcg-5 Mcg Inhaler] predniSONE [Deltasone] 40 mg PO DAILY 5 Days #10 tablet 04/25/21 - Allergies Allergies/Adverse Reactions: Allergies Allergy/AdvReac Type Severity Reaction Status Date / Time cefaclor [From [facility]] Allergy Severe Edema Verified 07/11/21 19:27 - Social History Does the pt smoke?: No Smoking Status: Former smoker Does the pt drink ETOH?: Yes Does the pt have substance abuse?: No - Immunizations Immunizations are current?: Yes - POLST Patient has POLST: No PD ED PE NORMAL - Vitals Vital signs reviewed: Yes - General General: Alert and oriented X 3, No acute distress, Well developed/nourished, Other (dyspnea just transferring from EMS cart to ER [facility]. Feels marked dyspnea lying down. ) - HEENT HEENT: Pharynx benign - Neck Neck: Supple, no meningeal sign, No adenopathy - Cardiac Cardiac: No: RRR (tachycardic and seems slightly irregular, with PVCs. ) - Respiratory Respiratory: No: Clear bilaterally (some diffuse wheezing. No work of breathing. Crackles at lowe third lung stevens. ) - Abdomen Abdomen: Soft, Non distended, Other (markedly obese. Mild redness of lower pannus without tenderness. ) - Female Female : Deferred - Rectal Rectal: Deferred - Back Back: No CVA TTP - Derm Derm: Normal color, Warm and dry, No rash (There is some subdermal bruising apparent on the right heel. No skin breakdown. There is superficial skin breakdown on the left heel just partial thickness of the skin. No redness or discharge.), Other (Both lower extremities have a band of redness from just above the ankles to mid alexander wrapping around symmetrically. There is pitting edema on both legs to above the knees. There is some blistering without any purulence on the anterior lower legs bilaterally. Tenderness on both heels with edema.) Results - Vitals Vitals: Vital Signs - 24 hr 07/11/21 07/11/21 07/11/21 19:27 19:51 20:02 Temperature 36.2 C L Heart Rate 127 H 135 H Respiratory 24 22 Rate Blood Pressure 92/55 L 108/75 O2 Saturation 99 85 L 07/11/21 07/11/21 07/11/21 20:33 20:55 21:10 Temperature Heart Rate 118 H 141 H 126 H Respiratory 19 18 16 Rate Blood Pressure 118/50 L 94/55 L O2 Saturation 89 L 95 Oxygen O2 Source Simple Mask Oxygen Flow Rate 4 - EKG (time done) 19:42 Rate: Rate (enter#) (142) Rhythm: Atrial fibrillation (Irregular but poor baseline. Cannot see P waves: I think is atrial fib. ) [place]: RAD QRS: Poor R wave progression Ischemia: Non specific changes. No: ST elevation c/w ischemia Compare to prior EKG: Changed from prior EKG (04/25/21 had similar morphology and PVC, but thythm clearly NSR at that time. ) - Labs Labs: Laboratory Tests 07/11/21 07/11/21 07/11/21 19:45 19:45 19:45 WBC 9.7 RBC 3.99 L Hgb 11.4 L Hct 38.5 MCV 96.5 MCH 28.6 MCHC 29.6 L RDW 18.6 H Plt Count 240 MPV 9.3 Neut # (Auto) 7.3 H Lymph # (Auto) 1.3 L Kay # (Auto) 0.8 Eos # (Auto) 0.2 Baso # (Auto) 0.1 Absolute Nucleated RBC 0.00 Nucleated RBC % 0.0 Sodium 141 Potassium 4.4 Chloride 103 Carbon Dioxide 28 Anion Gap 10.0 BUN 42 H Creatinine 2.5 H Estimated GFR (MDRD) 19 L Glucose 136 H Calcium 8.8 Magnesium 2.5 Total Bilirubin 0.9 AST 13 ALT 18 Alkaline Phosphatase 88 Troponin I High Sens B-Natriuretic Peptide 143 H Total Protein 6.6 L Albumin 3.3 Globulin 3.3 Albumin/Globulin Ratio 1.0 Lipase 39 Nasal Adenovirus (PCR) Nasal B. parapertussis DNA (PCR) Nasal Coronavir 229E PCR Nasal Coronavir HKU1 PCR Nasal Coronavir NL63 PCR Nasal Coronavir OC43 PCR Nasal Enterovir/Rhinovir PCR Nasal Influenza B PCR Nasal Influenza A PCR Nasal Parainfluen 1 PCR Nasal Parainfluen 2 PCR Nasal Parainfluen 3 PCR Nasal Parainfluen 4 PCR Nasal RSV (PCR) Nasal B.pertussis DNA PCR Nasal C.pneumoniae (PCR) Jesús Human Metapneumo PCR Nasal M.pneumoniae (PCR) Nasal SARS-CoV-2 (PCR) 07/11/21 07/11/21 19:45 19:58 WBC RBC Hgb Hct MCV MCH MCHC RDW Plt Count MPV Neut # (Auto) Lymph # (Auto) Kay # (Auto) Eos # (Auto) Baso # (Auto) Absolute Nucleated RBC Nucleated RBC % Sodium Potassium Chloride Carbon Dioxide Anion Gap BUN Creatinine Estimated GFR (MDRD) Glucose Calcium Magnesium Total Bilirubin AST ALT Alkaline Phosphatase Troponin I High Sens 13.6 B-Natriuretic Peptide Total Protein Albumin Globulin Albumin/Globulin Ratio Lipase Nasal Adenovirus (PCR) NOT DETECTED Nasal B. parapertussis DNA (PCR) NOT DETECTED Nasal Coronavir 229E PCR NOT DETECTED Nasal Coronavir HKU1 PCR NOT DETECTED Nasal Coronavir NL63 PCR NOT DETECTED Nasal Coronavir OC43 PCR NOT DETECTED Nasal Enterovir/Rhinovir PCR NOT DETECTED Nasal Influenza B PCR NOT DETECTED Nasal Influenza A PCR NOT DETECTED Nasal Parainfluen 1 PCR NOT DETECTED Nasal Parainfluen 2 PCR NOT DETECTED Nasal Parainfluen 3 PCR NOT DETECTED Nasal Parainfluen 4 PCR NOT DETECTED Nasal RSV (PCR) NOT DETECTED Nasal B.pertussis DNA PCR NOT DETECTED Nasal C.pneumoniae (PCR) NOT DETECTED Jesús Human Metapneumo PCR NOT DETECTED Nasal M.pneumoniae (PCR) NOT DETECTED Nasal SARS-CoV-2 (PCR) NOT DETECTED - Rads (name of study) chest xray Radiology: Prelim report reviewed (mild vascular congestion. no infiltrates. No effusions. ), See rad report PD MEDICAL DECISION MAKING - ED course Complexity details: reviewed results, re-evaluated patient, considered differential, d/w patient ED course: Complicated medical problems with progressive leg edema and dyspnea suggestive of CHF. However her lungs sound rather clear except for some wheezing. Does have history of COPD. This would raise suggestion of cor pulmonale or right heart failure. Her blood pressure was somewhat low and she is in a rapid A. fib. Her chest x-ray did not show significant CHF so I did feel comfortable with a mild fluid bolus of 250 to 500 mL. This brought her blood pressure up to initially 118 systolic then down to about 100 systolic. Heart rate slowed from the 160s down to 1 10-1 20 with diltiazem. It started to increase again up to 1 30-1 40 and a repeat dose was given. This did not seem to affect her blood pressure. I chose diltiazem for less effect on blood pressure compared to beta-jackson though in light of the concern for heart failure a beta-jackson may be more appropriate for ongoing treatment. She was given a dose of diuretic IV but has not had much urine output as yet. Her creatinine is acutely elevated compared to baseline recent tests. Presume an effect of the diuretic dosing recently. Its unclear how long she has been in the atrial fibrillation as she did note worsening dyspnea more so the last 2 or 3 days. As such I was reluctant to cardiovert. I did give a dose of Lovenox to cover for the atrial fibrillation and also consideration of pulmonary emboli. In discussion with Dr. Rodney we did come up with ordering duplex studies of both legs. Initial reading on this is negative though was technically difficult because of the obesity. The patient is just under the weight limit for our nuclear medicine and so we can get a VQ scan tomorrow. Dr. oRdney agreed to have the patient in the hospital for further evaluation and treatment. At this point the patient appears comfortable with unlabored breathing. She is on supplemental oxygen nasal cannula at 3 to 4 L. She had been given a DuoNeb and then albuterol treatment and this actually helped her breathing reasonably. She remains in tachycardic atrial fibrillation. - Critical Care Time(min): 40 Time Includes: Direct patient care, Reassess patient, Coordinate care, Medical consult Data interpretation: Labs, Pulse ox, CXR Procedures excluded from critical care time: EKG Departure - Departure Disposition: ED Place in Observation Clinical Impression: Atrial fibrillation, new onset, Rapid heart rate, COPD exacerbation, Leg edema Right heart failure Qualifiers: Heart failure chronicity: unspecified Qualified Code(s): I50.810 - Right heart failure, unspecified Dyspnea Qualifiers: Dyspnea type: shortness of breath Qualified Code(s): R06.02 - Shortness of breath; R06.00 - Dyspnea, unspecified; R06.01 - Orthopnea Condition: Stable Record reviewed to determine appropriate education?: Yes
[2021-07-11] MEDS ORDERED: FUROSEMIDE 40 MG/4 ML VIAL IVP STA (19:36)
[2021-07-11] MEDS ORDERED: IPRATROPIUM/ALBUTEROL 3 ML NEB INH STA (19:43)
[2021-07-11 19:51] LABS: BASOPHILS # (AUTO) 0.1 10^3/uL (0.0-0.1); BASOPHILS % (AUTO) 0.7 %; EOSINOPHILS # (AUTO) 0.2 10^3/uL (0.0-0.7); EOSINOPHILS % (AUTO) 1.9 %; HCT - HEMATOCRIT 38.5 % (37.0-47.0); HGB - HEMOGLOBIN 11.4 g/dL (12.0-16.0); LYMPHOCYTES # (AUTO) 1.3 10^3/uL (1.5-3.5); LYMPHOCYTES % (AUTO) 13.2 %; MEAN CORPUSCULAR HEMOGLOBIN 28.6 pg (27.0-31.0); MEAN CORPUSCULAR HGB CONC 29.6 g/dL (32.0-36.0); MEAN CORPUSCULAR VOLUME 96.5 fL (81.0-99.0); MEAN PLATELET VOLUME 9.3 fL (7.9-10.8); MONOCYTES # (AUTO) 0.8 10^3/uL (0.0-1.0); MONOCYTES % (AUTO) 8.7 %; NEUTROPHILS # (AUTO) 7.3 10^3/uL (1.5-6.6); NEUTROPHILS % (AUTO) 75.2 %; PLT - PLATELET COUNT 240 10^3/uL (130-450); RED BLOOD COUNT 3.99 10^6/uL (4.20-5.40); RED CELL DISTRIBUTION WIDTH 18.6 % (12.0-15.0); WHITE BLOOD COUNT 9.7 x10^3/uL (4.8-10.8)
[2021-07-11 20:05] LABS: ALBUMIN 3.3 g/dL (3.2-5.5); BILIRUBIN,TOTAL 0.9 mg/dL (0.2-1.0); CALCIUM 8.8 mg/dL (8.5-10.3); CREATININE 2.5 mg/dL (0.4-1.0); MAGNESIUM 2.5 mg/dL (1.7-2.8); POTASSIUM 4.4 mmol/L (3.5-5.0); TOTAL PROTEIN 6.6 g/dL (6.7-8.2)
[2021-07-11] MEDS ORDERED: diltiaZEM INJ 5 MG/ML VIAL IVP STA ×2 (20:23→21:22)
[2021-07-11] MEDS: SODIUM CHLORIDE 0.9% 250 ML IV STA (20:33)
[2021-07-11] MEDS ORDERED: ALBUTEROL NEB 2.5 MG/3 ML INH STA (20:45)
[2021-07-11 20:51] LABS: CORONAVIRUS 229E-RESP PCR NOT DETECTED; CORONAVIRUS HKU1-RESP PCR NOT DETECTED; CORONAVIRUS NL63-RESP PCR NOT DETECTED; CORONAVIRUS OC43-RESP PCR NOT DETECTED; HUMAN METAPNEUMOVIRUS NOT DETECTED; INFLUENZA A- RESP PCR PANEL NOT DETECTED; RHINOVIRUS/ENTEROVIRUS NOT DETECTED; SARS-CoV-2 -RESP PCR PANEL NOT DETECTED
[2021-07-11 20:52] LABS: B. PARAPERTUSSIS- RESP PCR PAN NOT DETECTED; B. PERTUSSIS- RESP PCR PANEL NOT DETECTED; C. PNEUMONIAE- RESP PCR PANEL NOT DETECTED; INFLUENZA B - RESP PCR PANEL NOT DETECTED; M. PNEUMONIAE- RESP PCR PANEL NOT DETECTED; PARAINFLUENZA VIRUS 1 NOT DETECTED; PARAINFLUENZA VIRUS 2 NOT DETECTED; PARAINFLUENZA VIRUS 3 NOT DETECTED; PARAINFLUENZA VIRUS 4 NOT DETECTED; RSV- RESP PCR PANEL NOT DETECTED
[2021-07-11] MEDS ORDERED: ENOXAPARIN 100 MG/ML SYRINGE SUBQ STA (20:52)
[2021-07-11] MEDS ORDERED: SODIUM CHLORIDE 0.9% 250 ML IV STA (21:22)
--- NOTE | 2021-07-11 21:43 | XRAY Report ---
PROCEDURE: Chest 1 View X-Ray INDICATIONS: Chest Pain TECHNIQUE: One view of the chest was acquired. COMPARISON: Chest x-ray 04/25/2021 FINDINGS: Surgical changes and devices: None. Lungs and pleura: No pleural effusions or pneumothorax. Mild appearance of increased vascularity. Mediastinum: Mediastinal contours appear normal. Heart size is mildly prominent. Bones and chest wall: No suspicious bony lesions. Overlying soft tissues appear unremarkable. IMPRESSION: Mild increased vascular suggestive of edema. Reviewed by: Shara Justin MD on 07/11/2021 9:41 PM PDT Approved by: Shara Justin MD on 07/11/2021 9:41 PM PDT Station ID: [id number]
--- NOTE | 2021-07-11 21:45 | XRAY Report ---
PROCEDURE: Ankle 3 View BILAT INDICATIONS: bilateral heel pains TECHNIQUE: 3 views of the ankle were acquired. COMPARISON: None FINDINGS: Bones: No fractures or dislocations. Ankle mortise is normally aligned. No suspicious bony lesions . Bilateral calcaneal spurs are present. Soft tissues: No tibiotalar joint effusion. Achilles tendon appears normal. IMPRESSION: No visualized acute fracture or dislocation. However, occult injury cannot be excluded. Recommend short interval imaging follow-up in 7-10 days as clinically indicated for additional evalua tion. Reviewed by: Shara Justin MD on 07/11/2021 9:43 PM PDT Approved by: Shara Justin MD on 07/11/2021 9:43 PM PDT Station ID: [id number]
[2021-07-11] MEDS ORDERED: ONDANSETRON 4 MG/2 ML VIAL IVP PRN (22:14)
[2021-07-11] MEDS ORDERED: oxyCODONE 5 MG TABLET PO PRN (22:14)
[2021-07-11] MEDS ORDERED: ONDANSETRON ODT 4 MG TABLET TL PRN (22:14)
[2021-07-11] MEDS ORDERED: ACETAMINOPHEN 325 MG TABLET PO PRN (22:14)
--- NOTE | 2021-07-11 22:24 | HISTORY & PHYSICAL EXAMINATION ---
Chief Complaint - Chief Complaint Chief Complaint: short of breath w painful swollen legs History of Present Illness - Admitted From Admitted From:: home via EMS - History Obtained From Records Reviewed: [facility] History obtained from: patient and Dr. Lopes Exam Limitations: none - History of Present Illness HPI Comment/Other: This is a 71-year-old morbidly obese female who has COPD requiring nighttime oxygen, diabetes, and has been short of breath with increasing regularity and severity since April of this year. When she was seen in April in the emergency room she was given a dose of Lasix, improved, and went home. She has been seeing her primary care provider and has continued to have increasing shortness of breath/leg edema and he put her on regular Lasix in the last 2 weeks. She cannot get around very well has been spending more more time sitting down. In spite of the lasix, she has had increasing leg edema, increasing dyspnea on exertion. The leg edema has not really improved. The only thing that is been helping is when she takes her oxygen now during the day (she only usually takes it at night) and using her inhalers. She really feels like this is her emphysema acting up but she can't figure out why because she is taking her inhalers and the steroids as instructed. She denies fever, chills, phlegm production. She denies chest pain or palpitations and does not have any history of CAD, arrh ythmia or valvular heart disease. She has been on steroids for >3 weeks off and on. Even with the lasix the edema did not improve and there were days that she only urinated once or twice. Food is ok but doesn't have much of an appetite. No nausea. No emesis, no diarrhea. She denies flank pain, urgency, frequency, hematuria. She finally called the ambulance today because her edema was getting so painful and her legs were getting red and hot over her shins. The legs cramps in her calves have been terrible. She has been sitting so much the last few that that her heels are feeling exquisitely tender. She has not been able to take a bath for 3 weeks because she was fearful of falling in the bathroom due to vargas. In the emergency room she was found to be tachycardic with new onset atrial fibrillation. She is followed by Dr. Michael Chew so do we do not have access to her medical records. She does not have an echocardiogram in our system. Her troponin was 13.6. Of note her baseline creatinine is 0.9 and she is 2.5 today. BNP is 143. Hemoglobin shows mild anemia at 11.4 where her baseline is 12.3. White cell count is normal. With the tachycardia of 127, her blood pressure was initially 92/55. She has been given a liter of fluid and her blood pressures come up to 118/50. In making sure we were not dealing with DVTs, had stat ultrasounds done and the preliminary report (final must be reviewed) is that of negative DVTs. CT angiogram is unable to be done because of the creatinine and GFR. She received 2 liters of fluid in the ER with diltiazem to slow her heart rate and has already started to feel much better. She is hungry and asking for some food. She is now placed in observation status for control of her atrial fibrillation rate as well as rule out DVT and treatment of probable cor pulmonale acute exacerbation. History - Past Medical History Cardiovascular: reports: Hypertension, Other (no history of VA nor CHF per patient. 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 Mom at 93 with no major medical illnesses but has severe dementia at the end. 1 sister around the age of 68 of a heart attack and some type of "blood disease". 1 son is completely healthy. He is a airplane patrol pilot for [employer] and has to be healthy to fly Living arrangement: At home Living Situation: Alone Social History Notes: She was born and raised in the [place] area. Her about 12 years ago and she has been since then. 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 She lived in [place], a suburb of [place]. She came to [facility] 3 years ago to be closer to her son. He lives [address] and is very helpful. She started smoking at the age of 23 and stopped at the age of 59. She smoked about 1 pack/day. She has no history of alcohol abuse and has a drink maybe once a month. No history of recreational substance abuse. - Substance History Use: Uses substance without health or social issues: NONE Abuse: Recurrent use of substance despite neg consequences: NONE Dependence: Experiences withdrawal or developed tolerances: NONE - POLST Patient has POLST: No POLST Status: Full Code Meds/Allgy - Home Medications Home Medications: Ambulatory Orders Medication Instructions Recorded Confirmed Albuterol Sulfate [Proair Hfa 1 - 2 puffs INH Q4H PRN 07/18/17 12/29/18 Inhaler] Cholecalciferol (Vitamin D3) 3,000 unit PO DAILY 07/18/17 12/29/18 [Vitamin D3] Levothyroxine Sodium [Synthroid] 200 mcg PO DAILY 07/18/17 12/25/18 Losartan/Hydrochlorothiazide 1 each PO DAILY 07/18/17 12/25/18 [Losartan-Hctz 100-25 mg Tab] Metformin HCl 250 mg PO DAILY 07/18/17 12/29/18 Glucosamine/D3/Boswellia Maddison 1 each PO DAILY 12/25/18 12/29/18 [Osteo Bi-Flex Tablet] Losartan/Hydrochlorothiazide 1 each PO DAILY 12/25/18 12/29/18 [Losartan-Hctz 100-25 mg Tab] Montelukast Sodium 10 mg PO DAILY PRN 12/25/18 12/29/18 Multivitamin [Multiple Vitamins] 1 each PO DAILY 12/25/18 12/29/18 Semaglutide [Ozempic] 0.25 mg SQ ONCE 12/25/18 12/25/18 Levothyroxine [Synthroid] 200 mcg PO QDAC 12/29/18 12/29/18 predniSONE [Deltasone] 10 mg PO [id number] #42 tab 05/11/19 Doxycycline Hyclate 100 mg PO BID #14 04/25/21 Mometasone/Formoterol [Dulera 100 13 gm IH DAILY #1 04/25/21 Mcg-5 Mcg Inhaler] predniSONE [Deltasone] 40 mg PO DAILY 5 Days #10 tablet 04/25/21 - Allergies Allergies/Adverse Reactions: Allergies Allergy/AdvReac Type Severity Reaction Status Date / Time cefaclor [From [facility]] Allergy Severe Edema Verified 07/11/21 19:27 Review of Systems - Constitutional Constitutional: reports: Fatigue, Malaise, Weakness, Weight gain. denies: Fever, Chills, Poor appetite, Diaphoresis, Night sweats - Eyes Eyes: reports: Vision loss. denies: Pain, Irritation, Amaurosis, Blurred vision - Ears, Nose & Throat Ears, Nose & Throat: reports: Other (Increasingly dry mouth with very cracked lips in the last 3 days). denies: Ear pain, Hearing loss, Hearing aids, Sore throat, Hoarseness - Cardiovascular Cariovascular: reports: Edema (Getting worse over the last 6 weeks. This is the largest her legs have ever been), Lightheadedness, Exertional dyspnea, Decr. exercise tolerance, Orthopnea. denies: Irregular heart rate, Palpitations, Eri st pain, Syncope - Respiratory Respiratory: reports: Wheezing, Orthopnea, SOB at rest, SOB with exertion. denies: Cough, Sputum production, Snoring, Hemoptysis - Gastrointestinal Gastrointestinal: denies: Abdominal pain, Abdominal distention, Constipation, Diarrhea, Change in bowel habits, Black stools, Bloody stools, Coffee grounds emesis, Reflux/heartburn - Genitourinary Genitourinary: reports: Incontinence. denies: Dysuria, Frequency, Urgency, Hematuria, Flank pain - Musculoskeletal Musculoskeletal: reports: Muscle pain (Severe in her calves from cramping), Back pain (Of her lower spine that is getting worse and worse and gives her spasming), Muscle aches (From calf to thighs. Gets more more difficult to ambulate especially in the last week), Joint pain (Especially in her left hip. Always has morning stiffness from arthritis diffusely) - Integumentary Integumentary: reports: Rash (On her mid shins that is getting redder and more tender in the last 4 days) - Neurological Neurological: reports: General weakness. denies: Focal weakness, Headache, Dizziness, Numbness, Memory problems, Pre-existing deficit, Abnormal gait, Incoordination, Slurred speech - Psychiatric Psychiatric: denies: Depression, Anxiety, Suicidal, Delusions, Hallucinations - Endocrine Endocrine: denies: Polyuria, Polydypsia, Polyphagia, Intolerance to cold - Hematologic/Lymphatic Hematologic/Lymphatic: denies: Anemia, Bruising, Petechiae Prior Level of Functionality: Even though she has had emphysema for years and is on oxygen at night, she states that she still independent in her home. Paid her own bills, drive a car, did her grocery shopping. Her son and [id number] do help her with heavy work but she has been independent until the last 2 to 3 weeks where she is needing more more help because she just cannot get around due to her leg edema and shortness of breath Exam - Vital Signs Reviewed Vital Signs: Yes Vital Signs: Vital Signs x48h Temp Pulse Resp BP Pulse Ox 07/11/21 21:10 126 H 16 94/55 L 95 07/11/21 20:55 141 H 18 07/11/21 20:33 118 H 19 118/50 L 89 L 07/11/21 20:02 135 H 22 85 L 07/11/21 19:51 108/75 07/11/21 19:27 36.2 C L 127 H 24 92/55 L 99 - Physical Exam General Appearance: positive: No acute distress, Alert, Other (5 foot 7 inch morbidly obese white female who weighs 180 kg, laying comfortably at approximately 30 degrees, wearing glasses, and with severely dry cracked lips) Eyes Bilateral: positive: PERRL, EOMI ENT: positive: Dry mucous membranes Neck: positive: Other (Neck is very thick and short and unable to be assessed for JVD). negative: Lymphadenopathy (R), Lymphadenopathy (L), Stiff neck Respiratory: positive: No respiratory distress, Wheezes (Very faint and diffuse, bilateral). negative: Rales, Rhonchi Cardiovascular: positive: Irregularly irregular, Tachycardia. negative: Gallop/S4, Friction rub Peripheral Pulses: positive: 0 Abdomen: positive: Non-tender, Nml bowel sounds, No distention, Other (Huge abdominal pannus with upper layer and lower layer above the pudendum) Skin: positive: Dry (w tenting of forearm skin), Other (Venous stasis dermatitis with early bullous formation over the mid shins of both legs. Right heel is pale, tender to touch but no skin breakdown. Varying stages of Mica intertrigo underneath both breast pannus with the right worse than the left. The dependent part of her upper pannus and her a) Extremities: positive: Other (Huge legs that are severely edematous. She states this is the biggest her legs have ever been. Tight red skin over the shins. Bullous formation. No bruising or open areas yet. Dense central redness that fades at the edges. During the exam severe leg cramps enough to bring her to tears. Heels R>L) Neurologic/Psychiatric: positive: Oriented x3, CN's nml (2-12), Motor nml Conclusion/Plan - Problem List (1) New onset atrial fibrillation Conclusion/Plan: She is unaware of palpitations. She has been increasingly sedentary due to her dyspnea on exertion. It is unclear when her atrial fibrillation started. Her EKG with her emergency room visit in April 2021 with sinus rhythm. Plan: Observation status Control of heart rate with beta-jackson TSH in the morning Echocardiogram in the morning To assess for pulmonary hypertension, left atrial size or any valvular heart disease Complete work-up for new onset atrial fibrillation. Troponins have been negat maude, TSH will be in the morning. We cannot do CT pulmonary angiogram and venous Dopplers are negative. Plan for VQ scan in the morning. We will start therapeutic Lovenox for temporary measure until we can establish in a more clear fashion whether she has had a PE or not. There is no contraindications. No recent head bleed, no history of GI bleed, no recent back surgery or epidural. I am not checking a D-dimer level since I anticipate it will be elevated from the red hot skin of her legs. (2) Acute renal failure Conclusion/Plan: due to severe dehydration on the basis of her mouth and skin exam. Lasix would have intravascularly depleted her without having much impact on chronic venous stasis or possibly cor pulmonale. With that she probably developed prerenal azotemia and then tani acute renal insufficiency. Plan: IV hydration Repeat labs in the morning Check renal ultrasound to make sure there is no obstruction There is no ability to use urine analysis of sodium/analysis since they are send out lab Qualifiers: Acute renal failure type: unspecified Qualified Code(s): N17.9 - Acute kidney failure, unspecified (3) COPD exacerbation Conclusion/Plan: This may be the reason she has been developing edema. Increasing pulmonary hypertension in the face of worsening COPD. Plan: Oxygen is already being used to keep O2 sats greater than 92% but not much more than that Steroids Fixed scheduled nebulizers She would be a candidate for outpatient cardiopulmonary rehab (4) Leg edema Conclusion/Plan: From chronic venous stasis versus right-sided congestive heart failure/cor pulmonale versus DVT. The latter has been ruled out with preliminary report of a DVT not seen. Plan: Last wraps to shrink her legs down, elevate legs, and use sequential compression device Echocardiogram to assess for pulmonary hypertension and RV function (5) Cellulitis of both lower extremities Conclusion/Plan: Skin is hot to touch, tender to touch. Red. Some areas of bullous formation as the skin has stretched tautly due to LE edema. Difficult to assess whether it severe venous stasis dermatitis or early cellulitis Or erysipelas. There is not a clear demarcation between affected and nonaffected skin. The density of redness is centralized, and then fades into the outer edges She is a diabetic. No history of MRSA infections. Unfortunately allergic to a cephalosporin. Next drug would be vancomycin but with her creatinine that is prohibitive. She does not have systemic signs of toxicity with fever or elevated white cell count. While she is tachycardic is from atrial fibrillation. And she is hypotensive but that is from dehydration and A. fib not infection. Plan: After going through the algorithm for cellulitis and up-to-date, it brings me down to the use of dicloxacillin, cefadroxil, cephalexin, or clindamycin. I will use dicloxacillin. (6) Hypertension Conclusion/Plan: She is on losartan with hydrochlorothiazide. At this time we will just resume losartan. However it will be resumed either tomorrow or the day after depending on her blood pressure she is she is currently mildly hypotensive. Hypotension is most likely to the dehydration induced by diuretic therapy Qualifiers: Hypertension type: primary hypertension Qualified Code(s): I10 - Essential (primary) hypertension (7) Controlled type 2 diabetes mellitus without complication, without long-term current use of insulin Conclusion/Plan: She is on Metformin and Ozempic. Those will be held while she is here. I did think about lactic acidosis inducing decompensation of COPD, but bicarb level is normal. Plan: Lantus 10 units at night Sliding scale insulin before meals (8) Candidal intertrigo Conclusion/Plan: nystatin (9) Weakness Conclusion/Plan: She states that she has been severely sedentary over the last 3 weeks. She is lost a lot of strength in her legs because of it and is having more more difficulty being mobile in her home. No focal deficits. Plan: Physical therapy evaluation and treatment - Lab Results Lab results reviewed: Yes Fish Bones: 07/11/21 19:45 07/11/21 19:45 - Diagnostic Imaging Results Diagnostic Imaging Results: positive: Prelim report reviewed, Final report reviewed Diagnostic Imaging Results Comments: Ankle x-ray done for heel pain shows no visualized acute fracture or dislocation. If she continues to have pain they recommend short interval imaging in the next 7 to 10 days. Chest x-ray with mild increased vascular appearance suggestive of possible edema but no pleural effusions or pneumonia Preliminary venous Dopplers of legs are without DVT - EKG Results EKG Interpreted Independently: No EKG Comparison: Changed from prior EKG EKG Findings: New onset atrial fibrillation since April EKG Core Measures - Anticipated LOS I expect patient to be DC'd or transferred within 96 hours.: Yes - DVT/VTE - Prophylaxis VTE/DVT Device ordered at admit?: Yes
[2021-07-11] MEDS ORDERED: LACTATED RINGERS 1,000 ML IV SCH (23:00)
[2021-07-11] MEDS: SODIUM CHLORIDE FLUSH 0.9% 10 ML SYRINGE IVP PRN (23:03)
[2021-07-12] MEDS: SODIUM CHLORIDE FLUSH 0.9% 10 ML SYRINGE IVP SCH ×3 (00:35→18:14)
[2021-07-12] MEDS ORDERED: ALBUTEROL NEB 2.5 MG/3 ML INH PRN (01:03)
[2021-07-12] MEDS ORDERED: DIGOXIN 500 MCG/2 ML AMP IVP STA ×2 (01:26→07:50)
[2021-07-12] MEDS ORDERED: SODIUM CHLORIDE 0.9% 500 ML IV ONE ×3 (01:27→07:52)
[2021-07-12] MEDS: DICLOXACILLIN 250 MG CAPSULE PO SCH ×5 (01:28→23:11)
[2021-07-12] MEDS: NYSTATIN POWDER 15 GM TOP SCH ×3 (01:28→22:07)
[2021-07-12] MEDS: METOPROLOL TARTRATE 25 MG TABLET PO SCH ×3 (01:30→22:34)
[2021-07-12 05:40] LABS: BASOPHILS # (AUTO) 0.1 10^3/uL (0.0-0.1); BASOPHILS % (AUTO) 0.6 %; EOSINOPHILS # (AUTO) 0.2 10^3/uL (0.0-0.7); EOSINOPHILS % (AUTO) 2.1 %; HCT - HEMATOCRIT 36.9 % (37.0-47.0); HGB - HEMOGLOBIN 10.8 g/dL (12.0-16.0); LYMPHOCYTES # (AUTO) 1.6 10^3/uL (1.5-3.5); LYMPHOCYTES % (AUTO) 14.9 %; MEAN CORPUSCULAR HEMOGLOBIN 28.5 pg (27.0-31.0); MEAN CORPUSCULAR HGB CONC 29.3 g/dL (32.0-36.0); MEAN CORPUSCULAR VOLUME 97.4 fL (81.0-99.0); MEAN PLATELET VOLUME 9.1 fL (7.9-10.8); MONOCYTES % (AUTO) 9.6 %; NEUTROPHILS # (AUTO) 7.7 10^3/uL (1.5-6.6); NEUTROPHILS % (AUTO) 72.3 %; PLT - PLATELET COUNT 218 10^3/uL (130-450); RED BLOOD COUNT 3.79 10^6/uL (4.20-5.40); RED CELL DISTRIBUTION WIDTH 18.8 % (12.0-15.0); WHITE BLOOD COUNT 10.7 x10^3/uL (4.8-10.8)
[2021-07-12 05:48] LABS: CALCIUM 8.7 mg/dL (8.5-10.3); CREATININE 2.4 mg/dL (0.4-1.0); POTASSIUM 4.9 mmol/L (3.5-5.0)
[2021-07-12] MEDS: LEVOTHYROXINE 100 MCG TABLET PO SCH (06:15)
[2021-07-12] MEDS ORDERED: LEVOTHYROXINE 75 MCG TABLET PO SCH (07:00)
[2021-07-12] MEDS: IPRATROPIUM/ALBUTEROL 3 ML NEB INH SCH ×4 (07:16→22:37)
[2021-07-12] MEDS: BUDESONIDE 0.5 MG/2 ML NEB INH SCH ×2 (07:17→22:36)
[2021-07-12] MEDS: FORMOTEROL FUMARATE NEB 20 MCG/2 ML INH SCH ×2 (07:17→22:36)
--- NOTE | 2021-07-12 07:25 | Ultrasound Report ---
PROCEDURE: Duplex Ext Veins Bilateral INDICATIONS: BETTYE ADAMSON TECHNIQUE: Real-time imaging, as well as color and pulse Doppler interrogation, were performed of the deep veins of both legs from the inguinal ligament to the popliteal fossa. COMPARISON: None FINDINGS: Diagnostic to the study is limited secondary to patient body habitus, large legs and severe lower extremity edema. The deep veins of the right and left lower extremity are normally compressible, and free of intralum inal thrombus where well visualized. Please note veins from the distal thighs to the upper calves are not well-visualized and cannot be evaluated. Color and pulse Doppler demonstrate normal phasic intra vascular flow in the well-visualized deep veins of the right and left lower extremity. There is norm al augmentation response to distal compression maneuver the visualized deep veins of the right and le ft lower extremities. IMPRESSION: 1. Limited study secondary to patient body habitus, large legs and severe lower extremity edema. Deep veins of the lower extremities from the distal thighs to the proximal calves are poorly visualized a nd cannot be evaluated. 2. No evidence of deep vein thrombosis involving the well-visualized deep veins of the right and left lower extremities. Reviewed by: Elena Palacio MD, PhD on 07/12/2021 7:24 AM PDT Approved by: Elena Palacio MD, PhD on 07/12/2021 7:24 AM PDT Station ID: [id number]
[2021-07-12] MEDS: SODIUM CHLORIDE 0.9% 1,000 ML IV SCH ×2 (08:06→23:32)
[2021-07-12] MEDS: INSULIN ASPART 300 UNIT/3 ML PEN SUBQ SCH ×4 (08:13→22:28)
[2021-07-12] MEDS: SODIUM CHLORIDE 0.9% 250 ML IV STA (08:17)
[2021-07-12] MEDS ORDERED: ENOXAPARIN 150 MG/ML SYRINGE SUBQ SCH (09:00)
[2021-07-12] MEDS ORDERED: ENOXAPARIN 40 MG/0.4 ML SYRINGE SUBQ SCH (09:00)
[2021-07-12 10:33] LABS: ESTIMATED AVERAGE GLUCOSE 174 mg/dL (70-100); HEMOGLOBIN A1c% 7.7 % (4.27-6.07)
--- NOTE | 2021-07-12 11:00 | PHARMACY PROGRESS NOTE ---
- Best Possible Medication History Admit Date and Time: 07/12/2125 Processed by: Pharmacy Medication History completed: Yes Patient Interview: Completed (PATIENT ABLE TO CONFIRM HOME MEDICATIONS) As the person ultimately responsible for medication therapy, providers are able to order a medication from an existing home medication list in [facility] via the "Reconcile Routine" prior to Confirmation of that medication by direct support staff member. Such practice is discouraged except when the physician, in their clinical judgment, deems that a medical need exists for a medication without regard to previous use.
--- NOTE | 2021-07-12 13:30 | PROVIDER PROGRESS NOTE ---
Assessment/Plan - Problem List (1) Hypotension Assessment/Plan: Despite IV fluids and fluid boluses, her blood pressure remains in the 70-80 systolic range. With this she is warm and dry and mentating normally, laughing and appropriate with her answers. She usually carries a diagnosis of hypertension. Her blood pressure meds are on hold. Her troponins are normal, ruling out cardiogenic shock. Her lactic acid is normal and we do not suspect that she has septic shock. An obvious etiology is longstanding diuresis recently therefore she is volume depleted. Stat echo was done this morning and it indeed shows an underfilled left ventricle that is hypercontractile consistent with volume depletion. We will continue with IV fluids at 125 cc an hour, fluid boluses as needed. Her blood pressure cuff on the upper arm is not reliable, we are using a pediatric cuff over the wrist which may be more accurate. Remain in the ICU. (2) Atrial fibrillation with RVR Assessment/Plan: The rapid rate is partly from her volume depletion. Her low blood pressure is partly from her rapid rate, not allowing adequate LV filling (decrease preload), to support a better blood pressure. We will continue to give IV fluids to help the heart rate. She received dig 0.25 mg IV x1 and will repeat that once more today. Get a morning dig level. Cardizem drip was ordered, will resume this if the blood pressure rises over 100, 4 rate control. She is not a candidate for cardioversion without having a DIAZ to R/O clot, since we do not know how long she has been in A. fib (since she has not felt palpitations and currently feels no palpitations despite a heart rate of 148). She has been started empirically on therapeutic doses of Lovenox for anticoagulation (for a CHADS score of 2: hypertension and diabetes). (3) New onset atrial fibrillation Assessment/Plan: This is of new onset since her last documented rhythm by telemetry or EKG but un known when it started since he does not feel palpitations. COPD exacerbation could be the cause but also will rule out PE as a pulmonary cause of new onset A. fib. She needs to get a VQ scan since she cannot get a dye load with her HARISH. Acute OH has been ruled out. LV systolic heart failure has been ruled out by echo which was done today showing a normal LVEF We will obtain TSH to evaluate for hyperthyroidism as a cause of Afib>> TSH was normal. And for rate control and anticoagulation as above. (4) Cellulitis of both lower extremities Assessment/Plan: She has been empirically started on antibiotics, po Dicloxacillin qid Dressing changes (wound care) by nursing (5) COPD exacerbation Assessment/Plan: Although I do not hear wheezing or prolonged expiratory phase, the patient thinks that she is in a COPD exacerbation. Continue with nebulizers, steroids, Mucinex and supplemental O2 (6) Acute renal failure Qualifiers: Acute renal failure type: unspecified Qualified Code(s): N17.9 - Acute kidney failure, unspecified Assessment/Plan: Her creatinine is normally 0.9. At admission she is 2.4 on her creatinine. Her recent history of new diuretic use confirms that she probably has HARISH from volume depletion causing ATN. We will continue with hydration, also needed for her hypotension. Avoid nephrotoxins. Check BMP daily (7) Diabetes mellitus Assessment/Plan: A1c is 7.7 Continue with carb controlled diet, Lantus insulin, sliding scale insulin and fingerstick checks of glucose (8) Morbid obesity with BMI of 60.0-69.9, adult Assessment/Plan: As per Hx (9) Candidal intertrigo Assessment/Plan: Nystatin has been ordered to apply intertriginous (in both groins, under both breasts) (10) Weakness Assessment/Plan: Physical therapy was ordered by the admitting doctor. We will cancel physical therapy as she continues to have hypotension all day long and needs to remain in the ICU (11) Adnexal mass Assessment/Plan: Ultrasound of the kidneys was done to evaluate for any obvious reasons for HARISH. The left adnexa was reported to have an echogenic focus representing a mass, or it could be artifact. A CT was recommended for further evaluation. Will plan to do a CT with contrast, when her creatinine is normal (hopefully in several days) and when she can lie flat - Current Meds Current Meds: Current Medications Generic Name Dose Route Start Last Admin Trade Name Freq PRN Reason Stop Dose Admin Albuterol/Ipratropium 3 ml 07/12/21 07:00 07/12/21 11:50 Ipratropium/Albuterol 3 Ml Neb INH 3 ml RTQID DAVIAN Administration Budesonide 0.5 mg 07/12/21 07:00 07/12/21 07:17 Budesonide 0.5 Mg/2 Ml Neb INH 0.5 mg RTBID DAVIAN Administration Dicloxacillin Sodium 500 mg 07/12/21 01:00 07/12/21 13:01 Dicloxacillin 250 Mg Capsule PO 500 mg Q6HR DAVIAN Administration Enoxaparin Sodium 150 mg 07/12/21 09:00 07/12/21 11:10 Enoxaparin 150 Mg/Ml Syringe SUBQ 150 mg BID DAVIAN Administration Formoterol Fumarate 20 mcg 07/12/21 07:00 07/12/21 07:17 Formoterol Fumarate Neb 20 Mcg/2 Ml INH 20 mcg RTBID DAVIAN Administration Sodium Chloride 1,000 mls @ 100 mls/hr 07/12/21 08:00 07/12/21 08:06 Normal Saline 0.9% IV 100 mls/hr .Q10H DAVAIN Administration Insulin Aspart 1 - 9 unit 07/12/21 08:00 07/12/21 12:59 Insulin Aspart 300 Unit/3 Ml Pen SUBQ 1 unit 0800,1200,1700,2100 DAVIAN Administration Protocol Levothyroxine Sodium 200 mcg 07/12/21 07:00 07/12/21 06:15 Levothyroxine 100 Mcg Tablet PO 200 mcg QDAC DAVIAN Administration Metoprolol Tartrate 25 mg 07/12/21 01:00 07/12/21 11:06 Metoprolol Tartrate 25 Mg Tablet PO Not Given BID DAVIAN Nystatin 1 applic 07/12/21 01:00 07/12/21 10:00 Nystatin Powder 15 Gm TOP 1 applic BID DAVIAN Administration Sodium Chloride 10 ml 07/11/21 22:14 07/11/21 23:03 Sodium Chloride Flush 0.9% 10 Ml Syringe IVP 10 ml PRN PRN Administration NEEDED PER PROVIDER ORDERS Sodium Chloride 10 ml 07/12/21 01:00 07/12/21 11:05 Sodium Chloride Flush 0.9% 10 Ml Syringe IVP 10 ml 0100,0900,1700 DAVIAN Administration - Lab Result Fish Bone Diagrams: 07/12/21 05:33 07/12/21 05:33 - Additional Planning My Orders: My Active Orders 07/12/21 08:00 Sodium Chloride 0.9% [Normal Saline 0.9%] 1,000 ml IV 100 mls/hr 07/13/21 05:00 DIGOXIN [CHEM] DAILYLAB Subjective - Subjective Patient Reports: Shortness of Breath Objective Vital Signs: Vital Signs - 24 hr 07/11/21 07/11/21 07/11/21 19:27 19:51 20:02 Temperature 36.2 C L Heart Rate 127 H 135 H Heart Rate [ Apical] Respiratory 24 22 Rate Blood Pressure 92/55 L 108/75 Blood Pressure [Right Brachial artery] Blood Pressure [Right Radial artery] O2 Saturation 99 85 L 07/11/21 07/11/21 07/11/21 20:33 20:55 21:10 Temperature Heart Rate 118 H 141 H 126 H Heart Rate [ Apical] Respiratory 19 18 16 Rate Blood Pressure 118/50 L 94/55 L Blood Pressure [Right Brachial artery] Blood Pressure [Right Radial artery] O2 Saturation 89 L 95 07/12/21 07/12/21 07/12/21 00:26 01:30 01:37 Temperature 36.5 C Heart Rate 135 H Heart Rate [ 58 L Apical] Respiratory 16 Rate Blood Pressure 79/42 L Blood Pressure 94/55 L [Right Brachial artery] Blood Pressure [Right Radial artery] O2 Saturation 97 07/12/21 07/12/21 07/12/21 02:03 02:24 02:33 Temperature Heart Rate Heart Rate [ 130 H 130 H Apical] Respiratory Rate Blood Pressure Blood Pressure [Right Brachial artery] Blood Pressure 85/49 L 78/45 L 82/41 L [Right Radial artery] O2 Saturation 91 L 07/12/21 07/12/21 07/12/21 03:33 04:54 05:53 Temperature 36.7 C Heart Rate Heart Rate [ 130 H 138 H Apical] Respiratory 16 Rate Blood Pressure Blood Pressure [Right Brachial artery] Blood Pressure 76/47 L 76/55 L 77/50 L [Right Radial artery] O2 Saturation 95 07/12/21 07/12/21 07/12/21 06:51 07:19 08:00 Temperature 36.8 C Heart Rate 140 H Heart Rate [ 128 H 137 H Apical] Respiratory 15 18 24 Rate Blood Pressure Blood Pressure [Right Brachial artery] Blood Pressure 83/66 L 73/55 L [Right Radial artery] O2 Saturation 94 97 07/12/21 07/12/21 07/12/21 08:12 10:00 11:00 Temperature Heart Rate 143 H Heart Rate [ 134 H 134 H Apical] Respiratory 23 22 Rate Blood Pressure Blood Pressure [Right Brachial artery] Blood Pressure 68/50 L 83/53 L [Right Radial artery] O2 Saturation 95 96 07/12/21 07/12/21 07/12/21 11:06 11:52 12:00 Temperature Heart Rate 148 H Heart Rate [ 129 H Apical] Respiratory 18 22 Rate Blood Pressure 83/53 L Blood Pressure [Right Brachial artery] Blood Pressure 86/71 L [Right Radial artery] O2 Saturation 97 Oxygen O2 Source Oxymizer Oxygen Flow Rate 4 I&O (Last 24 Hrs): Intake and Output Totals x24h 07/10/21 07/11/21 07/12/21 23:59 23:59 23:59 Intake Total 500 2486.2 Output Total 100 Balance 500 2386.2 General: Alert, Oriented x3 HEENT: Mucous membr. moist/pink, Other (Obese, wearing O2 per n.c.) Neck: Supple, Other (Cannot eval for JVP due to morbid obesity`) Neuro: Alert, Non Focal Cardiovascular: Other (Irreg irreg, distant heart sounds) Respiratory: Other (Diminished breath sounds, no wheezing or rales heard) Abdomen: Soft (Obese with a very large pannus), No tenderness Extremities: Other (4+ edema to thighs. shins are red and have several blisters, heels are tender) Comments/Notes: She has a reddish-brown semielevated tender discoloration in large areas under both breasts and in both groins - Results Results: Laboratory Results WBC 10.7 x10^3/uL (4.8-10.8) 07/12/21 05:33 RBC 3.79 10^6/uL (4.20-5.40) L 07/12/21 05:33 Hgb 10.8 g/dL (12.0-16.0) L 07/12/21 05:33 Hct 36.9 % (37.0-47.0) L 07/12/21 05:33 MCV 97.4 fL (81.0-99.0) 07/12/21 05:33 MCH 28.5 pg (27.0-31.0) 07/12/21 05:33 MCHC 29.3 g/dL (32.0-36.0) L 07/12/21 05:33 RDW 18.8 % (12.0-15.0) H 07/12/21 05:33 Plt Count 218 10^3/uL (130-450) 07/12/21 05:33 MPV 9.1 fL (7.9-10.8) 07/12/21 05:33 Neut # (Auto) 7.7 10^3/uL (1.5-6.6) H 07/12/21 05:33 Lymph # (Auto) 1.6 10^3/uL (1.5-3.5) 07/12/21 05:33 Sharkey # (Auto) 1.0 10^3/uL (0.0-1.0) 07/12/21 05:33 Eos # (Auto) 0.2 10^3/uL (0.0-0.7) 07/12/21 05:33 Baso # (Auto) 0.1 10^3/uL (0.0-0.1) 07/12/21 05:33 Absolute Nucleated RBC 0.00 x10^3/uL 07/12/21 05:33 Nucleated RBC % 0.0 /100WBC 07/12/21 05:33 Sodium 139 mmol/L (135-145) 07/12/21 05:33 Potassium 4.9 mmol/L (3.5-5.0) 07/12/21 05:33 Chloride 101 mmol/L (101-111) 07/12/21 05:33 Carbon Dioxide 27 mmol/L (21-32) 07/12/21 05:33 Anion Gap 11.0 (6-13) 07/12/21 05:33 BUN 41 mg/dL (6-20) H 07/12/21 05:33 Creatinine 2.4 mg/dL (0.4-1.0) H 07/12/21 05:33 Estimated GFR (MDRD) 20 (>89) L 07/12/21 05:33 Glucose 129 mg/dL (70-100) H 07/12/21 05:33 Estimat Average Glucose 174 mg/dL (70-100) H 07/12/21 05:33 Hemoglobin A1c % 7.7 % (4.27-6.07) H 07/12/21 05:33 Lactic Acid 1.6 mmol/L (0.5-2.2) 07/12/21 08:54 Calcium 8.7 mg/dL (8.5-10.3) 07/12/21 05:33 Magnesium 2.5 mg/dL (1.7-2.8) 07/11/21 19:45 Total Bilirubin 0.9 mg/dL (0.2-1.0) 07/11/21 19:45 AST 13 IU/L (10-42) 07/11/21 19:45 ALT 18 IU/L (10-60) 07/11/21 19:45 Alkaline Phosphatase 88 IU/L (42-121) 07/11/21 19:45 Troponin I High Sens 13.5 ng/L (2.3-14.8) 07/12/21 05:33 B-Natriuretic Peptide 143 pg/mL (5-100) H 07/11/21 19:45 Total Protein 6.6 g/dL (6.7-8.2) L 07/11/21 19:45 Albumin 3.3 g/dL (3.2-5.5) 07/11/21 19:45 Globulin 3.3 g/dL (2.1-4.2) 07/11/21 19:45 Albumin/Globulin Ratio 1.0 (1.0-2.2) 07/11/21 19:45 Lipase 39 U/L (22-51) 07/11/21 19:45 TSH 2.02 uIU/mL (0.34-5.60) 07/12/21 05:33 Nasal Adenovirus (PCR) NOT DETECTED 07/11/21 19:58 Nasal B. parapertussis DNA (PCR) NOT DETECTED 07/11/21 19:58 Nasal Coronavir 229E PCR NOT DETECTED 07/11/21 19:58 Nasal Coronavir HKU1 PCR NOT DETECTED 07/11/21 19:58 Nasal Coronavir NL63 PCR NOT DETECTED 07/11/21 19:58 Nasal Coronavir OC43 PCR NOT DETECTED 07/11/21 19:58 Nasal Enterovir/Rhinovir PCR NOT DETECTED 07/11/21 19:58 Nasal Influenza B PCR NOT DETECTED 07/11/21 19:58 Nasal Influenza A PCR NOT DETECTED 07/11/21 19:58 Nasal Parainfluen 1 PCR NOT DETECTED 07/11/21 19:58 Nasal Parainfluen 2 PCR NOT DETECTED 07/11/21 19:58 Nasal Parainfluen 3 PCR NOT DETECTED 07/11/21 19:58 Nasal Parainfluen 4 PCR NOT DETECTED 07/11/21 19:58 Nasal RSV (PCR) NOT DETECTED 07/11/21 19:58 Nasal B.pertussis DNA PCR NOT DETECTED 07/11/21 19:58 Nasal C.pneumoniae (PCR) NOT DETECTED 07/11/21 19:58 Jesús Human Metapneumo PCR NOT DETECTED 07/11/21 19:58 Nasal M.pneumoniae (PCR) NOT DETECTED 07/11/21 19:58 Nasal SARS-CoV-2 (PCR) NOT DETECTED 07/11/21 19:58 - Procedures Procedures: Procedures RESECTION OF GALLBLADDER, PERCUTANEOUS ENDOSCOPIC APPROACH (12/29/18)
--- NOTE | 2021-07-12 13:53 | Ultrasound Report ---
PROCEDURE: Retroperitoneal INDICATIONS: renal failure TECHNIQUE: Real-time scanning was performed of the retroperitoneal organs, with image documentation. COMPARISON: Ultrasound abdomen 11/24/2018 FINDINGS: Limited exam secondary to patient body habitus. Kidneys: Kidneys are normal in size. Right kidney measures 12.0 cm long; left kidney is not well se en. Right renal cortical thickness is 1.5 cm. No right-sided solid masses, hydronephrosis, or nephr olithiasis. Bladder: Prevoid volume 3 53 cc. No post void residual. Ureteral jets are not visualized. Miscellaneous: Echogenic focus is present within the adnexal region on the left. IMPRESSION: 1. Limited exam secondary to patient body habitus. 2. Right kidney appears unremarkable. 3. Left kidney is not visualized suspected be secondary to patient body habitus. If further evaluatio n is required, CT is recommended. 4. Echogenic focus within the left adnexa. This could represent a mass. However, it is poorly charact erized and other etiologies including artifact cannot be excluded. CT is recommended for further eval uation. Reviewed by: Shara Justin MD on 07/12/2021 1:51 PM PDT Approved by: Shara Justin MD on 07/12/2021 1:51 PM PDT Station ID: [id number]
[2021-07-12] MEDS ORDERED: CALCIUM CARBONATE CHEW 500 MG TABLET PO PRN (20:29)
[2021-07-12] MEDS: SACCHAROMYCES BOULARDII 250 MG CAPSULE PO SCH (22:04)
[2021-07-12] MEDS: INSULIN GLARGINE 300 UNIT/3 ML PEN SUBQ SCH (22:05)
[2021-07-12] MEDS: PANTOPRAZOLE 40 MG TABLET PO SCH (22:05)
[2021-07-12] MEDS: ENOXAPARIN 100 MG/ML SYRINGE SUBQ SCH (23:11)
[2021-07-12] MEDS: MIN OIL/DIMETHICON/COCONUT OIL 92 GM TUBE TOP PRN (23:30)
[2021-07-13] MEDS: SODIUM CHLORIDE FLUSH 0.9% 10 ML SYRINGE IVP SCH ×3 (01:34→17:42)
[2021-07-13] MEDS: MIN OIL/DIMETHICON/COCONUT OIL 92 GM TUBE TOP PRN (03:53)
[2021-07-13] MEDS: SODIUM CHLORIDE 0.9% 1,000 ML IV SCH ×2 (04:43→14:27)
[2021-07-13 05:32] LABS: BASOPHILS # (AUTO) 0.1 10^3/uL (0.0-0.1); BASOPHILS % (AUTO) 0.7 %; EOSINOPHILS # (AUTO) 0.2 10^3/uL (0.0-0.7); EOSINOPHILS % (AUTO) 2.1 %; HCT - HEMATOCRIT 38.2 % (37.0-47.0); HGB - HEMOGLOBIN 11.1 g/dL (12.0-16.0); LYMPHOCYTES # (AUTO) 1.1 10^3/uL (1.5-3.5); LYMPHOCYTES % (AUTO) 14.1 %; MEAN CORPUSCULAR HEMOGLOBIN 28.2 pg (27.0-31.0); MEAN CORPUSCULAR HGB CONC 29.1 g/dL (32.0-36.0); MEAN CORPUSCULAR VOLUME 97.2 fL (81.0-99.0); MONOCYTES # (AUTO) 0.8 10^3/uL (0.0-1.0); MONOCYTES % (AUTO) 9.5 %; NEUTROPHILS # (AUTO) 5.9 10^3/uL (1.5-6.6); NEUTROPHILS % (AUTO) 73.2 %; PLT - PLATELET COUNT 243 10^3/uL (130-450); RED BLOOD COUNT 3.93 10^6/uL (4.20-5.40); RED CELL DISTRIBUTION WIDTH 18.9 % (12.0-15.0); WHITE BLOOD COUNT 8.1 x10^3/uL (4.8-10.8)
[2021-07-13 05:41] LABS: CALCIUM 8.6 mg/dL (8.5-10.3); CREATININE 1.9 mg/dL (0.4-1.0); POTASSIUM 4.6 mmol/L (3.5-5.0)
[2021-07-13] MEDS: DICLOXACILLIN 250 MG CAPSULE PO SCH ×3 (06:28→17:58)
[2021-07-13] MEDS: LEVOTHYROXINE 100 MCG TABLET PO SCH (06:28)
[2021-07-13] MEDS: PANTOPRAZOLE 40 MG TABLET PO SCH (06:29)
[2021-07-13] MEDS: IPRATROPIUM/ALBUTEROL 3 ML NEB INH SCH ×4 (07:43→20:20)
[2021-07-13] MEDS: FORMOTEROL FUMARATE NEB 20 MCG/2 ML INH SCH ×2 (07:43→20:20)
[2021-07-13] MEDS: BUDESONIDE 0.5 MG/2 ML NEB INH SCH ×2 (07:43→20:20)
[2021-07-13] MEDS: INSULIN ASPART 300 UNIT/3 ML PEN SUBQ SCH ×4 (08:56→22:15)
[2021-07-13] MEDS: SACCHAROMYCES BOULARDII 250 MG CAPSULE PO SCH ×2 (09:21→17:58)
[2021-07-13] MEDS: ENOXAPARIN 100 MG/ML SYRINGE SUBQ SCH (09:21)
[2021-07-13] MEDS: FAMOTIDINE 20 MG TABLET PO SCH (13:26)
[2021-07-13 13:29] LABS: BILIRUBIN,URINE NEGATIVE (NEGATIVE); GLUCOSE, URINE (UA) NEGATIVE (NEGATIVE); KETONES,URINE (UA) NEGATIVE (NEGATIVE); LEUKOCYTE ESTERASE, URINE NEGATIVE (NEGATIVE); NITRITE,URINE NEGATIVE (NEGATIVE); OCCULT BLOOD,URINE LARGE (NEGATIVE); PH,URINE 5.5 PH (5.0-7.5); PROTEIN,URINE NEGATIVE (NEGATIVE); UROBILINOGEN,URINE 0.2 (NORMAL) E.U./dL (NORMAL)
[2021-07-13 13:40] LABS: BACTERIA,URINE Rare /HPF (None Seen); CLARITY,URINE SL. CLOUDY (CLEAR); RBC,URINE TNTC /HPF (0-5); SQUAMOUS EPITHELIAL CELL,UR RARE Squamous (<= Few)
[2021-07-13] MEDS: NYSTATIN POWDER 15 GM TOP SCH (14:30)
[2021-07-13] MEDS: METOPROLOL TARTRATE 25 MG TABLET PO SCH ×2 (17:41→21:15)
--- NOTE | 2021-07-13 18:41 | PROVIDER PROGRESS NOTE ---
Assessment/Plan - Problem List (1) Hypotension Assessment/Plan: Despite IV fluids and fluid boluses, her blood pressure remains in the 70-80 systolic range. With this she is warm and dry and mentating normally, speaking appropriately with her answers. She usually carries a diagnosis of hypertension. Her blood pressure meds are on hold. Diuretic on hold. Her troponins are normal, ruling out cardiogenic shock. Her lactic acid is normal and we do not suspect that she has septic shock. An obvious etiology is longstanding diuresis which was recently increased, therefore she is volume depleted. Her Echo done yesterday showed an underfilled left ventricle that is hypercontractile consistent with volume depletion. We will continue with IV fluids, fluid boluses as needed. Her blood pressure cuff on the upper arm is not reliable, we are using a pediatric cuff over the wrist which may be more accurate. Remain in the ICU. (2) Atrial fibrillation with RVR Assessment/Plan: The rapid rate is partly from her volume depletion. Her low blood pressure is partly from her rapid rate, not allowing adequate LV filling (decrease preload), to support a better blood pressure. We will continue to give IV fluids to help the heart rate. She received Dig and we may need to repeat that due to low BP, unable to use high doses of B-jackson or Cardizem. Cardizem drip was ordered, will resume this if the blood pressure rises over 100. She is not a candidate for cardioversion without having a DIAZ to R/O clot, since we do not know how long she has been in A. fib (since she did not feel palpitations recenty, she stated, and currently feels no palpitations despite a heart rate of 148). She has been started empirically on therapeutic doses of Lovenox for anticoagulation (for a CHADS score of 2: hypertension and diabetes). (3) Cellulitis of both lower extremities Assessment/Plan: She has been empirically started on antibiotics, po Dicloxacillin qid Dressing changes (wound care) by nursing (4) COPD exacerbation Assessment/Plan: Although I do not hear wheezing or prolonged expiratory phase, the patient thinks that she is in a COPD exacerbation. Continue with nebulizers, steroids, Mucinex and supplemental O2 (5) Acute renal failure Qualifiers: Acute renal failure type: unspecified Qualified Code(s): N17.9 - Acute kidney failure, unspecified Assessment/Plan: Her creatinine is normally 0.9. At admission she was 2.4 on her creatinine. Her recent history of diuretic use confirms that she probably has HARISH from volume depletion causing ATN. We will continue with hydration, IV fluids are also needed for her hypotension. Avoid nephrotoxins. Check BMP daily (6) Diabetes mellitus Assessment/Plan: A1c is 7.7 Continue with carb controlled diet, Lantus insulin, sliding scale insulin and fingerstick checks of glucose (7) Morbid obesity with BMI of 60.0-69.9, adult Assessment/Plan: As per Hx I suspect she also has obesity-hypoventilation syndrome (8) Cor pulmonale Assessment/Plan: This was seen on Echo done here, with a huge RV and poor function. Likely her obesity (hypoventilation) plus COPD have contributed to this finding. She will be very intravascular volume sensitive, therefore. (9) Candidal intertrigo Assessment/Plan: Nystatin has been ordered to apply intertriginous (in both groins, under both breasts) (10) Weakness Assessment/Plan: Physical therapy was ordered by the admitting doctor. We will cancel physical therapy as she continues to have hypotension all day long and needs to remain in the ICU (11) Adnexal mass Assessment/Plan: Ultrasound of the kidneys was done to evaluate for any obvious reasons for HARISH. The left adnexa was reported to have an echogenic focus representing a mass, or it could be artifact. A CT was recommended for further evaluation. Will plan to do a CT with contrast, when her creatinine is normal (hopefully in several days) and when she can lie flat - Current Meds Current Meds: Current Medications Generic Name Dose Route Start Last Admin Trade Name Freq PRN Reason Stop Dose Admin Albuterol/Ipratropium 3 ml 07/12/21 07:00 07/13/21 15:52 Ipratropium/Albuterol 3 Ml Neb INH 3 ml RTQID DAVIAN Administration Budesonide 0.5 mg 07/12/21 07:00 07/13/21 07:43 Budesonide 0.5 Mg/2 Ml Neb INH 0.5 mg RTBID DAVIAN Administration Calcium Carbonate/Glycine 500 mg 07/12/21 20:29 07/12/21 22:07 Calcium Carbonate Chew 500 Mg Tablet PO 500 mg Q4H PRN Administration INDIGESTION Dicloxacillin Sodium 500 mg 07/12/21 01:00 07/13/21 17:58 Dicloxacillin 250 Mg Capsule PO 500 mg Q6HR DAVIAN Administration Famotidine 20 mg 07/13/21 12:00 07/13/21 13:26 Famotidine 20 Mg Tablet PO 20 mg DAILY DAVIAN Administration Formoterol Fumarate 20 mcg 07/12/21 07:00 07/13/21 07:43 Formoterol Fumarate Neb 20 Mcg/2 Ml INH 20 mcg RTBID DAVIAN Administration Sodium Chloride 1,000 mls @ 100 mls/hr 07/12/21 08:00 07/13/21 17:58 Normal Saline 0.9% IV 100 mls/hr .Q10H DAVIAN Infusion Insulin Aspart 1 - 9 unit 07/12/21 08:00 07/13/21 17:42 Insulin Aspart 300 Unit/3 Ml Pen SUBQ Not Given 0800,1200,1700,2100 [facility] Protocol Insulin Glargine 10 unit 07/12/21 21:00 07/12/21 22:05 Insulin Glargine 300 Unit/3 Ml Pen SUBQ 10 unit QPM DAVIAN Administration Levothyroxine Sodium 200 mcg 07/12/21 07:00 07/13/21 06:28 Levothyroxine 100 Mcg Tablet PO 200 mcg QDAC DAVIAN Administration Metoprolol Tartrate 25 mg 07/12/21 01:00 07/13/21 17:41 Metoprolol Tartrate 25 Mg Tablet PO Not Given BID DAVIAN Mineral Oil 1 applic 07/12/21 20:04 07/13/21 03:53 Min Oil/Dimethicon/Coconut Oil 92 Gm Tube TOP 1 applic PRN PRN Administration Skin Care Nystatin 1 applic 07/12/21 01:00 07/13/21 14:30 Nystatin Powder 15 Gm TOP 1 applic BID DAVIAN Administration Pantoprazole Sodium 40 mg 07/12/21 22:00 07/13/21 06:29 Pantoprazole 40 Mg Tablet PO 40 mg QDAC DAVIAN Administration Saccharomyces Boulardii 250 mg 07/12/21 20:30 07/13/21 17:58 Saccharomyces Boulardii 250 Mg Capsule PO 250 mg BIDWM DAVIAN Administration Sodium Chloride 10 ml 07/11/21 22:14 07/11/21 23:03 Sodium Chloride Flush 0.9% 10 Ml Syringe IVP 10 ml PRN PRN Administration NEEDED PER PROVIDER ORDERS Sodium Chloride 10 ml 07/12/21 01:00 07/13/21 17:42 Sodium Chloride Flush 0.9% 10 Ml Syringe IVP Not Given 0100,0900,1700 DAVAIN - Lab Result Fish Bone Diagrams: 07/15/21 05:00 07/15/21 05:00 - Additional Planning My Orders: My Active Orders 07/12/21 20:04 Min Oil/Dimeth/Coconut Oil Crm [Cavilon] 1 applic TOP PRN PRN 07/13/21 C DIFF PCR Stat 07/13/21 04:32 MISC TEST QUEST REFRIG [REFLAB] Routine 07/13/21 11:18 Thompson Insertion [RC] QSHIFT 07/13/21 12:00 Famotidine [Pepcid] 20 mg PO DAILY Subjective - Subjective Patient Reports: Shortness of Breath, Other (Wants to get OOB, RN explained why she cannot (due to ongoing hypotension)) Objective Vital Signs: Vital Signs - 24 hr 07/12/21 07/12/21 07/12/21 19:00 20:00 21:00 Temperature Heart Rate Heart Rate [ 141 H 137 H 129 H Apical] Heart Rate [ Monitoring electrodes] Respiratory 20 25 H 22 Rate Blood Pressure Blood Pressure 83/57 L 93/69 87/65 L [Right Radial artery] O2 Saturation 2 L 99 97 07/12/21 07/12/21 07/12/21 22:25 22:34 23:00 Temperature Heart Rate Heart Rate [ 131 H 125 H Apical] Heart Rate [ Monitoring electrodes] Respiratory 23 20 Rate Blood Pressure 75/66 L Blood Pressure 91/56 L 100/72 [Right Radial artery] O2 Saturation 95 97 07/13/21 07/13/21 07/13/21 00:00 01:00 02:00 Temperature Heart Rate Heart Rate [ 135 H 121 H 130 H Apical] Heart Rate [ Monitoring electrodes] Respiratory 21 20 22 Rate Blood Pressure Blood Pressure 105/81 H 104/72 104/75 [Right Radial artery] O2 Saturation 92 96 93 07/13/21 07/13/21 07/13/21 03:00 04:00 05:00 Temperature Heart Rate Heart Rate [ 127 H 123 H 130 H Apical] Heart Rate [ Monitoring electrodes] Respiratory 21 20 20 Rate Blood Pressure Blood Pressure 88/65 L 102/66 107/56 L [Right Radial artery] O2 Saturation 94 97 97 07/13/21 07/13/21 07/13/21 06:00 06:59 07:44 Temperature Heart Rate 141 H Heart Rate [ 126 H 126 H Apical] Heart Rate [ Monitoring electrodes] Respiratory 19 96 H 22 Rate Blood Pressure Blood Pressure 118/91 H 99/75 [Right Radial artery] O2 Saturation 97 2 L 07/13/21 07/13/21 07/13/21 08:00 09:00 09:30 Temperature 36.7 C Heart Rate Heart Rate [ 142 H 139 H Apical] Heart Rate [ Monitoring electrodes] Respiratory 18 23 Rate Blood Pressure Blood Pressure 104/69 97/65 [Right Radial artery] O2 Saturation 99 98 07/13/21 07/13/21 07/13/21 09:35 10:00 11:00 Temperature Heart Rate Heart Rate [ 137 H Apical] Heart Rate [ 139 H 147 H Monitoring electrodes] Respiratory 19 25 H Rate Blood Pressure Blood Pressure 82/69 L 104/84 H 100/78 [Right Radial artery] O2 Saturation 97 97 07/13/21 07/13/21 07/13/21 11:59 12:00 13:00 Temperature 36.6 C Heart Rate 130 H Heart Rate [ Apical] Heart Rate [ 131 H 137 H Monitoring electrodes] Respiratory 20 21 21 Rate Blood Pressure Blood Pressure 114/72 96/59 L [Right Radial artery] O2 Saturation 97 96 07/13/21 07/13/21 07/13/21 14:00 15:00 15:52 Temperature 36.5 C Heart Rate 133 H Heart Rate [ Apical] Heart Rate [ 136 H 130 H Monitoring electrodes] Respiratory 21 21 27 H Rate Blood Pressure Blood Pressure 106/68 98/75 [Right Radial artery] O2 Saturation 98 96 07/13/21 07/13/21 07/13/21 16:00 17:00 17:41 Temperature 36.5 C Heart Rate Heart Rate [ Apical] Heart Rate [ 139 H 136 H Monitoring electrodes] Respiratory 19 32 H Rate Blood Pressure 91/59 L Blood Pressure 94/67 96/59 L [Right Radial artery] O2 Saturation 100 97 07/13/21 17:55 Temperature Heart Rate Heart Rate [ Apical] Heart Rate [ 127 H Monitoring electrodes] Respiratory 20 Rate Blood Pressure Blood Pressure 88/60 L [Right Radial artery] O2 Saturation 94 Oxygen O2 Source Oxymizer Oxygen Flow Rate 4 I&O (Last 24 Hrs): Intake and Output Totals x24h 07/11/21 07/12/21 07/13/21 23:59 23:59 23:59 Intake Total 500 4836.2 2815.000 Output Total 320 1285 Balance 500 4516.2 1530.000 General: Alert, Oriented x3 HEENT: Mucous membr. moist/pink Neck: Supple, Other (Cannot eval for JVD due to morbid obesity) Neuro: Alert, Non Focal Cardiovascular: Other (Tachy, irreg, distant heart sounds (due to morbid obesity), cannot auscultate a murmur) Respiratory: No respiratory distress (at rest on O2 per n.c.), Other (red-brown discoloration in folds under oth large breastst) Abdomen: No tenderness, Other (Obese with pannus, bilat groins red-brown discoloration in the folds under her pannus) Extremities: Other (2+ edema, shins are wrapped, redness and warmth are decre asing within the outlined areas bilat) - Results Results: Laboratory Results WBC 8.1 x10^3/uL (4.8-10.8) 07/13/21 04:32 RBC 3.93 10^6/uL (4.20-5.40) L 07/13/21 04:32 Hgb 11.1 g/dL (12.0-16.0) L 07/13/21 04:32 Hct 38.2 % (37.0-47.0) 07/13/21 04:32 MCV 97.2 fL (81.0-99.0) 07/13/21 04:32 MCH 28.2 pg (27.0-31.0) 07/13/21 04:32 MCHC 29.1 g/dL (32.0-36.0) L 07/13/21 04:32 RDW 18.9 % (12.0-15.0) H 07/13/21 04:32 Plt Count 243 10^3/uL (130-450) 07/13/21 04:32 MPV 10.0 fL (7.9-10.8) 07/13/21 04:32 Neut # (Auto) 5.9 10^3/uL (1.5-6.6) 07/13/21 04:32 Lymph # (Auto) 1.1 10^3/uL (1.5-3.5) L 07/13/21 04:32 [place] # (Auto) 0.8 10^3/uL (0.0-1.0) 07/13/21 04:32 Eos # (Auto) 0.2 10^3/uL (0.0-0.7) 07/13/21 04:32 Baso # (Auto) 0.1 10^3/uL (0.0-0.1) 07/13/21 04:32 Absolute Nucleated RBC 0.00 x10^3/uL 07/13/21 04:32 Nucleated RBC % 0.0 /100WBC 07/13/21 04:32 Sodium 141 mmol/L (135-145) 07/13/21 04:32 Potassium 4.6 mmol/L (3.5-5.0) 07/13/21 04:32 Chloride 105 mmol/L (101-111) 07/13/21 04:32 Carbon Dioxide 26 mmol/L (21-32) 07/13/21 04:32 Anion Gap 10.0 (6-13) 07/13/21 04:32 BUN 38 mg/dL (6-20) H 07/13/21 04:32 Creatinine 1.9 mg/dL (0.4-1.0) H 07/13/21 04:32 Estimated GFR (MDRD) 26 (>89) L 07/13/21 04:32 Glucose 116 mg/dL (70-100) H 07/13/21 04:32 Estimat Average Glucose 174 mg/dL (70-100) H 07/12/21 05:33 Hemoglobin A1c % 7.7 % (4.27-6.07) H 07/12/21 05:33 Lactic Acid 1.6 mmol/L (0.5-2.2) 07/12/21 08:54 Calcium 8.6 mg/dL (8.5-10.3) 07/13/21 04:32 Magnesium 2.5 mg/dL (1.7-2.8) 07/11/21 19:45 Total Bilirubin 0.9 mg/dL (0.2-1.0) 07/11/21 19:45 AST 13 IU/L (10-42) 07/11/21 19:45 ALT 18 IU/L (10-60) 07/11/21 19:45 Alkaline Phosphatase 88 IU/L (42-121) 07/11/21 19:45 Troponin I High Sens 13.5 ng/L (2.3-14.8) 07/12/21 05:33 B-Natriuretic Peptide 143 pg/mL (5-100) H 07/11/21 19:45 Total Protein 6.6 g/dL (6.7-8.2) L 07/11/21 19:45 Albumin 3.3 g/dL (3.2-5.5) 07/11/21 19:45 Globulin 3.3 g/dL (2.1-4.2) 07/11/21 19:45 Albumin/Globulin Ratio 1.0 (1.0-2.2) 07/11/21 19:45 Lipase 39 U/L (22-51) 07/11/21 19:45 TSH 2.02 uIU/mL (0.34-5.60) 07/12/21 05:33 Urine Color YELLOW 07/13/21 13:00 Urine Clarity SL. CLOUDY (CLEAR) 07/13/21 13:00 Urine pH 5.5 PH (5.0-7.5) 07/13/21 13:00 Ur Specific [place] 1.025 (1.002-1.030) 07/13/21 13:00 Urine Protein NEGATIVE mg/dL (NEGATIVE) 07/13/21 13:00 Urine Glucose (UA) NEGATIVE mg/dL (NEGATIVE) 07/13/21 13:00 Urine Ketones NEGATIVE mg/dL (NEGATIVE) 07/13/21 13:00 Urine Occult Blood LARGE (NEGATIVE) H 07/13/21 13:00 Urine Nitrite NEGATIVE (NEGATIVE) 07/13/21 13:00 Urine Bilirubin NEGATIVE (NEGATIVE) 07/13/21 13:00 Urine Urobilinogen 0.2 (NORMAL) E.U./dL (NORMAL) 07/13/21 13:00 Ur Leukocyte Esterase NEGATIVE (NEGATIVE) 07/13/21 13:00 Urine RBC TNTC /HPF (0-5) H 07/13/21 13:00 Urine WBC 6-10 /HPF (0-5) H 07/13/21 13:00 Ur Squamous Epith Cells RARE Squamous (<= Few) 07/13/21 13:00 Urine Bacteria Rare /HPF (None Seen) 07/13/21 13:00 Urine Culture Comments NOT INDICATED 07/13/21 13:00 Nasal Adenovirus (PCR) NOT DETECTED 07/11/21 19:58 Nasal B. parapertussis DNA (PCR) NOT DETECTED 07/11/21 19:58 Nasal Coronavir 229E PCR NOT DETECTED 07/11/21 19:58 Nasal Coronavir HKU1 PCR NOT DETECTED 07/11/21 19:58 Nasal Coronavir NL63 PCR NOT DETECTED 07/11/21 19:58 Nasal Coronavir OC43 PCR NOT DETECTED 07/11/21 19:58 Nasal Enterovir/Rhinovir PCR NOT DETECTED 07/11/21 19:58 Nasal Influenza B PCR NOT DETECTED 07/11/21 19:58 Nasal Influenza A PCR NOT DETECTED 07/11/21 19:58 Nasal Parainfluen 1 PCR NOT DETECTED 07/11/21 19:58 Nasal Parainfluen 2 PCR NOT DETECTED 07/11/21 19:58 Nasal Parainfluen 3 PCR NOT DETECTED 07/11/21 19:58 Nasal Parainfluen 4 PCR NOT DETECTED 07/11/21 19:58 Nasal RSV (PCR) NOT DETECTED 07/11/21 19:58 Nasal Screen MRSA (PCR) NEGATIVE (NEGATIVE) 07/13/21 09:30 Nasal B.pertussis DNA PCR NOT DETECTED 07/11/21 19:58 Nasal C.pneumoniae (PCR) NOT DETECTED 07/11/21 19:58 Jesús Human Metapneumo PCR NOT DETECTED 07/11/21 19:58 Nasal M.pneumoniae (PCR) NOT DETECTED 07/11/21 19:58 Nasal SARS-CoV-2 (PCR) NOT DETECTED 07/11/21 19:58 - Procedures Procedures: Procedures RESECTION OF GALLBLADDER, PERCUTANEOUS ENDOSCOPIC APPROACH (12/29/18)
[2021-07-13] MEDS: ENOXAPARIN 150 MG/ML SYRINGE SUBQ SCH (21:15)
[2021-07-13] MEDS: INSULIN GLARGINE 300 UNIT/3 ML PEN SUBQ SCH (22:15)
[2021-07-13] MEDS ORDERED: FLUTICASONE NASAL SPRAY NAS PRN (22:43)
[2021-07-14] MEDS: SODIUM CHLORIDE 0.9% 1,000 ML IV SCH ×4 (00:30→21:12)
[2021-07-14] MEDS: DICLOXACILLIN 250 MG CAPSULE PO SCH ×4 (00:40→19:14)
[2021-07-14] MEDS: NYSTATIN POWDER 15 GM TOP SCH ×3 (00:40→21:52)
[2021-07-14] MEDS ORDERED: LOPERAMIDE 2 MG CAPSULE PO ONE (06:00)
[2021-07-14] MEDS: PANTOPRAZOLE 40 MG TABLET PO SCH (06:51)
[2021-07-14] MEDS: LEVOTHYROXINE 100 MCG TABLET PO SCH (06:52)
[2021-07-14] MEDS: BUDESONIDE 0.5 MG/2 ML NEB INH SCH ×2 (07:32→19:35)
[2021-07-14] MEDS: IPRATROPIUM/ALBUTEROL 3 ML NEB INH SCH ×4 (07:32→19:35)
[2021-07-14] MEDS: FORMOTEROL FUMARATE NEB 20 MCG/2 ML INH SCH ×2 (07:32→19:35)
[2021-07-14] MEDS: SODIUM CHLORIDE FLUSH 0.9% 10 ML SYRINGE IVP SCH ×3 (07:58→19:13)
[2021-07-14] MEDS: INSULIN ASPART 300 UNIT/3 ML PEN SUBQ SCH ×4 (08:00→22:01)
[2021-07-14] MEDS ORDERED: LOPERAMIDE 2 MG CAPSULE PO PRN (08:04)
[2021-07-14] MEDS: SACCHAROMYCES BOULARDII 250 MG CAPSULE PO SCH ×2 (08:12→19:13)
[2021-07-14] MEDS ORDERED: DIGOXIN 125 MCG TABLET PO SCH (09:00)
[2021-07-14 09:09] LABS: BASOPHILS # (AUTO) 0.1 10^3/uL (0.0-0.1); BASOPHILS % (AUTO) 0.7 %; CALCIUM 8.7 mg/dL (8.5-10.3); CREATININE 1.7 mg/dL (0.4-1.0); EOSINOPHILS # (AUTO) 0.1 10^3/uL (0.0-0.7); EOSINOPHILS % (AUTO) 1.4 %; HCT - HEMATOCRIT 37.6 % (37.0-47.0); HGB - HEMOGLOBIN 10.9 g/dL (12.0-16.0); LYMPHOCYTES # (AUTO) 1.8 10^3/uL (1.5-3.5); LYMPHOCYTES % (AUTO) 17.2 %; MEAN CORPUSCULAR HEMOGLOBIN 28.9 pg (27.0-31.0); MEAN CORPUSCULAR VOLUME 99.7 fL (81.0-99.0); MEAN PLATELET VOLUME 10.1 fL (7.9-10.8); MONOCYTES # (AUTO) 1.1 10^3/uL (0.0-1.0); MONOCYTES % (AUTO) 10.4 %; NEUTROPHILS # (AUTO) 7.2 10^3/uL (1.5-6.6); NEUTROPHILS % (AUTO) 69.6 %; PLT - PLATELET COUNT 235 10^3/uL (130-450); POTASSIUM 5.1 mmol/L (3.5-5.0); RED BLOOD COUNT 3.77 10^6/uL (4.20-5.40); RED CELL DISTRIBUTION WIDTH 19.4 % (12.0-15.0); WHITE BLOOD COUNT 10.4 x10^3/uL (4.8-10.8)
[2021-07-14] MEDS: FAMOTIDINE 20 MG TABLET PO SCH (10:46)
[2021-07-14] MEDS: ENOXAPARIN 150 MG/ML SYRINGE SUBQ SCH ×2 (10:55→21:28)
[2021-07-14 11:57] LABS: ABG PH 7.25 (7.35-7.45)
[2021-07-14 11:58] LABS: ABG BASE EXCESS -2.4 mmol/L (-2.0-3.0); ABG HCO3 25.6 mmol/L (22.0-26.0); ABG PCO2 60 mmHg (34-45); ABG PO2 75 mmHg (80-100); ABG TCO2 27.4 MMOL/L (21.0-29.0)
[2021-07-14 11:59] LABS: ABG OXYGEN SATURATION 94 % (94-98); ALLEN TEST POSITIVE
--- NOTE | 2021-07-14 12:23 | XRAY Report ---
PROCEDURE: Chest 1 View X-Ray INDICATIONS: SOB TECHNIQUE: One view of the chest was acquired. COMPARISON: CXR 07/11/2021, 04/25/2021. FINDINGS: Surgical changes and devices: None. Lungs and pleura: No pleural effusions or pneumothorax. Prominent pulmonary vasculature markings. No consolidation seen. Mediastinum: Mediastinal contours appear unchanged. Heart size appears prominent. Bones and chest wall: No suspicious bony lesions. Overlying soft tissues appear unremarkable. IMPRESSION: Pulmonary vasculature engorgement or fluid overload/CHF. Prominent heart size. Reviewed by: Riki Sharif MD on 07/14/2021 11:22 AM [facility] Approved by: Riki Sharif MD on 07/14/2021 11:22 AM [facility] Station ID: [id number]
[2021-07-14 14:03] LABS: ABG PCO2 59 mmHg (34-45); ABG PH 7.25 (7.35-7.45); ABG PO2 104 mmHg (80-100)
[2021-07-14 14:04] LABS: ABG MODE OF VENTILATION SYNCHRONOUS/TIMES; ABG OXYGEN SATURATION 97 % (94-98); ABG RESPIRATORY RATE 12 b/min; ABG TCO2 26.8 MMOL/L (21.0-29.0); ALLEN TEST POSITIVE
[2021-07-14 15:50] LABS: ABG HCO3 21.5 mmol/L (22.0-26.0); ABG PCO2 50 mmHg (34-45); ABG PH 7.25 (7.35-7.45); ABG PO2 80 mmHg (80-100)
[2021-07-14 15:51] LABS: ABG BASE EXCESS -5.9 mmol/L (-2.0-3.0); ABG MODE OF VENTILATION SYNCHRONOUS/TIMES; ABG OXYGEN SATURATION 95 % (94-98); ABG RESPIRATORY RATE 18 b/min; ALLEN TEST POSITIVE
[2021-07-14] MEDS ORDERED: fentaNYL 100 MCG/2 ML VIAL ONE (16:23)
[2021-07-14] MEDS ORDERED: SUCCINYLCHOLINE 200 MG/10 ML VIAL ONE (16:24)
[2021-07-14] MEDS ORDERED: KETAMINE 500 MG/10 ML VIAL ONE (16:26)
--- NOTE | 2021-07-14 16:47 | MISCELLANEOUS PROVIDER NOTE ---
Miscellaneous Provider Note - - Note: Procedure note: This 71-year-old female with exacerbation of COPD has failed management with BiPAP and is retaining. I have been asked by the hospitalist to come to intubate the patient. The patient was premedicated with 100 mcg of fentanyl, 100 mg of ketamine and 100 mg of succinylcholine. A 7.5 ET tube was placed with the use of the glide scope with direct visualization of the cords. There was color change on the capnogram and symmetric rise of the chest with equal breath sounds with a tube taped at 21-1/2 cm at the gums.
[2021-07-14] MEDS: MIDAZOLAM DRIP 50 MG/100 ML BAG IV SCH ×3 (16:57→23:02)
[2021-07-14] MEDS ORDERED: SODIUM CHLORIDE 0.9% 500 ML IV ONE (17:00)
[2021-07-14] MEDS: METOPROLOL TARTRATE 25 MG TABLET PO SCH (17:33)
--- NOTE | 2021-07-14 17:37 | XRAY Report ---
PROCEDURE: Chest for Line Placement INDICATIONS: Intubated and on vent TECHNIQUE: One view of the chest was acquired. COMPARISON: CXR earlier today. FINDINGS: Surgical changes and devices: Endotracheal tube in the mid trachea. Lungs and pleura: No pleural effusions or pneumothorax. Similar prominent pulmonary vasculature forrest ings. Mediastinum: Mediastinal contours appear normal. Heart size is normal. Bones and chest wall: No suspicious bony lesions. Overlying soft tissues appear unremarkable. IMPRESSION: Endotracheal tube in the mid trachea in satisfactory position. Reviewed by: Riki Sharif MD on 07/14/2021 4:36 PM [facility] Approved by: Riki Sharif MD on 07/14/2021 4:36 PM [facility] Station ID: [id number]
--- NOTE | 2021-07-14 17:45 | PROVIDER PROGRESS NOTE ---
Assessment/Plan - Problem List (1) Acute respiratory failure with hypoxia and hypercarbia Assessment/Plan: The patient's mentation was more groggy this morning and ABG was performed by respiratory therapist. ABG showed respiratory acidosis, the patient was examined, felt to be tiring on O2 via oximizer and she was started on BiPAP. The next ABG 1 hour later was nearly unchanged and BiPAP settings were adjusted, plus dentures were removed for better seal. The next ABG 1 hour later again showed persistent respiratory acidosis, and the patient appeared to be tiring and failing. I had spoken to her earlier about possibly needing mechanical ventilation and may need to be intubated today. The patient wanted me to call her DPOA who is her caregiver and her [id number], Belle. I spoke to Belle by phone and reviewed the events of the day and advised that we start planning for intubation. Belle stated that several days ago the patient texted to her "Do not let them put a tube in me". There were no other Advance Directives however or any other prior discussion about the patient's wishes regarding goals of care if she should be in critical condition and if she should be needing a v entilator. The [id number] was to call and speak to the pt. I returned back to the patient to explain the need for ventilator and how this would be done including sedation. The patient agreed. Dr. Durham, the ED provider, was requested to do elective intubation, which he did without difficulty using fentanyl iv push, ketamine iv push and succinylcholine iv. The patient was then put on IV Versed for sedation while intubated. Her post-intubation chest x-ray showed that the tip of the ET tube was high and needed to be inserted 1 cm deeper, which was then done by Dr. Durham. Since being put on the vent, the patient's peak airway pressures were 50-100 and the tidal volume that she was obtaining was low, since it was set to cut off at high peak pressure. The patient was then repositioned in bed using a Hover mat and HOB elevated. Because of her morbid obesity, this position in bed allowed her shoulders to be more open to expand her lungs better. Her ventilator settings were then adjusted to obtain the lowest possible peak airway pressures and allow 450 cc of tidal volume which was achieved. PEEP was set at 5. ABGs will be followed. An Art line insertion was ordered to be done by Anesthesia. CRITICAL CARE TIME SPENT : 120 MIN (2) Hypotension Assessment/Plan: Despite IV fluids and fluid boluses, her blood pressure remains in the 70-90 systolic range. She was warm and dry and mentating normally until becoming lethargic today. She usually carries a diagnosis of hypertension. Her blood pressure meds are on hold. Diuretic on hold. Her troponins were normal, ruling out cardiogenic shock. Her lactic acid was normal and we do not suspect that she has septic shock. She is volume depleted (from recent diuresis) and from being very intravascular volume sensitive with her Cor Pulmonale. Her Echo done 2 days ago, showed an underfilled left ventricle that is hypercontractile consistent with volume depletion. Today, the ER doctor, Dr Durham checked her IVC, which is underfilled, he told me. We will continue with IV fluids, fluid boluses as needed. Her blood pressure cuff on the upper arm is not reliable because it does not encircle her morbidly obese arm, thus we were using a pediatric cuff over the wrist which may be more accurate. Will insert arterial line, given difficulty measuring reliable BP and need for repeat ABGs now that she is intubated. (3) Atrial fibrillation with RVR Assessment/Plan: The rapid rate is partly from her volume depletion. Her low blood pressure is partly from her rapid rate, not allowing adequate LV filling (decrease preload), to support a better blood pressure. We will continue to give IV fluids to help the heart rate. She received Dig and we may need to repeat that due to low BP, unable to use high doses of B-jackson or Cardizem. Cardizem drip was ordered, will resume this if the blood pressure rises over 100. She is not a candidate for cardioversion without having a DAIZ to R/O clot, since we do not know how long she has been in A. fib (since she did not feel palpitations recently, she stated, and currently feels no palpitations despite a heart rate of 148). She will need transfer for higher level of care with Cardiology to manage this. She has been started empirically on therapeutic doses of Lovenox for anticoagulation (for a CHADS score of 2: hypertension and diabetes). (4) Cellulitis of both lower extremities Assessment/Plan: She had been empirically started on antibiotics, po Dicloxacillin qid. Will chsange to iv Amp Dressing changes (wound care) by nursing (5) COPD exacerbation Assessment/Plan: Although I do not hear wheezing or prolonged expiratory phase due to her morbid obesity, the patient thought that she was in a COPD exacerbation. Continue with nebulizers, steroids and ventilator support, adjusting settings based on ABG results (6) Acute renal failure Qualifiers: Acute renal failure type: unspecified Qualified Code(s): N17.9 - Acute kidney failure, unspecified Assessment/Plan: Her creatinine is normally 0.9. At admission she was 2.4 on her creatinine. Her recent history of diuretic use confirms that she probably has HARISH from volume depletion causing ATN. This is slowly improving We will continue with hydration, IV fluids are also needed for her hypotension. Avoid nephrotoxins. Check BMP daily (7) Diabetes mellitus Assessment/Plan: A1c is 7.7 CWill start iv D5, Lantus insulin, sliding scale insulin and fingerstick checks of glucose (8) Morbid obesity with BMI of 60.0-69.9, adult Assessment/Plan: As per Hx I suspect she also has obesity-hypoventilation syndrome (9) Cor pulmonale Assessment/Plan: This was seen on Echo done here, with a huge RV and poor RV function. Likely her obesity (hypoventilation) plus COPD have contributed to this finding. She will be very intravascular volume sensitive, therefore. This also gives her a higher morbidity and mortality risk. (10) Candidal intertrigo Assessment/Plan: Nystatin has been ordered to apply intertriginous (in both groins, under both breasts) (11) Adnexal mass Assessment/Plan: The left adnexa was reported to have an echogenic focus representing a mass, or it could be artifact. A CT was recommended for further evaluation but she could not lie flat. This will need further work-up going forward. - Current Meds Current Meds: Current Medications Generic Name Dose Route Start Last Admin Trade Name Freq PRN Reason Stop Dose Admin Albuterol/Ipratropium 3 ml 07/12/21 07:00 07/14/21 11:29 Ipratropium/Albuterol 3 Ml Neb INH 3 ml RTQID DAVIAN Administration Budesonide 0.5 mg 07/12/21 07:00 07/14/21 07:32 Budesonide 0.5 Mg/2 Ml Neb INH 0.5 mg RTBID DAVIAN Administration Calcium Carbonate/Glycine 500 mg 07/12/21 20:29 07/12/21 22:07 Calcium Carbonate Chew 500 Mg Tablet PO 500 mg Q4H PRN Administration INDIGESTION Dicloxacillin Sodium 500 mg 07/12/21 01:00 07/14/21 12:44 Dicloxacillin 250 Mg Capsule PO 07/14/21 18:01 500 mg Q6HR DAVIAN Administration Digoxin 250 mcg 07/14/21 09:00 07/14/21 10:47 Digoxin 125 Mcg Tablet PO 250 mcg DAILY DAVIAN Administration Enoxaparin Sodium 150 mg 07/13/21 21:00 07/14/21 10:55 Enoxaparin 150 Mg/Ml Syringe SUBQ 150 mg BID DAVIAN Administration Famotidine 20 mg 07/13/21 12:00 07/14/21 10:46 Famotidine 20 Mg Tablet PO 20 mg DAILY ADVIAN Administration Formoterol Fumarate 20 mcg 07/12/21 07:00 07/14/21 07:32 Formoterol Fumarate Neb 20 Mcg/2 Ml INH 20 mcg RTBID DAVIAN Administration Sodium Chloride 1,000 mls @ 100 mls/hr 07/12/21 08:00 07/14/21 10:39 Normal Saline 0.9% IV 100 mls/hr .Q10H DAVIAN Administration Midazolam HCl 50 mg in 100 mls @ 14.4 mls/hr 07/14/21 17:00 07/14/21 16:57 Versed Drip IV 0.04 mg/kg/hr .Q6H57M DAVIAN 14.4 mls/hr Administration Protocol 0.04 MG/KG/HR Insulin Aspart 1 - 9 unit 07/12/21 08:00 07/14/21 12:45 Insulin Aspart 300 Unit/3 Ml Pen SUBQ 1 unit 0800,1200,1700,2100 DAVIAN Administration Protocol Insulin Glargine 10 unit 07/12/21 21:00 07/13/21 22:15 Insulin Glargine 300 Unit/3 Ml Pen SUBQ 10 unit QPM DAVIAN Administration Levothyroxine Sodium 200 mcg 07/12/21 07:00 07/14/21 06:52 Levothyroxine 100 Mcg Tablet PO 200 mcg QDAC DAVIAN Administration Metoprolol Tartrate 25 mg 07/12/21 01:00 07/13/21 21:15 Metoprolol Tartrate 25 Mg Tablet PO 25 mg BID DAVIAN Administration Mineral Oil 1 applic 07/12/21 20:04 07/13/21 03:53 Min Oil/Dimethicon/Coconut Oil 92 Gm Tube TOP 1 applic PRN PRN Administration Skin Care Nystatin 1 applic 07/12/21 01:00 07/14/21 10:50 Nystatin Powder 15 Gm TOP 1 applic BID DAVIAN Administration Pantoprazole Sodium 40 mg 07/12/21 22:00 07/14/21 06:51 Pantoprazole 40 Mg Tablet PO 40 mg QDAC DAVIAN Administration Saccharomyces Boulardii 250 mg 07/12/21 20:30 07/14/21 08:12 Saccharomyces Boulardii 250 Mg Capsule PO 250 mg BIDWM DAVIAN Administration Sodium Chloride 10 ml 07/11/21 22:14 07/11/21 23:03 Sodium Chloride Flush 0.9% 10 Ml Syringe IVP 10 ml PRN PRN Administration NEEDED PER PROVIDER ORDERS Sodium Chloride 10 ml 07/12/21 01:00 07/14/21 10:50 Sodium Chloride Flush 0.9% 10 Ml Syringe IVP Not Given 0100,0900,1700 DAVIAN - Lab Result Fish Bone Diagrams: 07/15/21 05:00 07/15/21 05:00 - Additional Planning My Orders: My Active Orders 07/14/21 08:04 Loperamide [Imodium] 2 mg PO QID PRN 07/14/21 09:00 Digoxin [Lanoxin] 250 mcg PO DAILY 07/14/21 12:00 BIPAP [BIPAP/CPAP - RT] [RC] .q2h 07/14/21 15:33 RT - Obtain Arterial Specimen [RC] .ONCE 07/14/21 16:29 Chest for Line Placement [XR] Stat 07/14/21 16:30 Arterial Line Care - ICU [RC] Q2HR Arterial Line Insertion - ICU [RC] .ONCE 07/14/21 17:00 Midazolam Drip [Versed Drip] 50 mg in 100 ml IV 0.04 mg/kg/hr 07/14/21 17:31 RT - Obtain Arterial Specimen [RC] .ONCE 07/14/21 18:15 ABG - ARTERIAL BLOOD GAS [BG] Timed 07/14/21 22:00 Amoxicillin [Amoxil] 500 mg PO TID 07/15/21 05:00 BMP - BASIC METABOLIC PANEL [CHEM] DAILYLAB CBC - COMP BLD CT W/AUTO DIFF [HEME] DAILYLAB Subjective - Subjective Patient Reports: Other (Somnolent, morealert when put on BIPAP) Objective Vital Signs: Vital Signs - 24 hr 07/13/21 07/13/21 07/13/21 17:41 17:55 19:00 Temperature Heart Rate Heart Rate [ 127 H 122 H Monitoring electrodes] Respiratory 20 19 Rate Blood Pressure 91/59 L Blood Pressure 88/60 L 100/63 [Right Radial artery] O2 Saturation 94 100 07/13/21 07/13/21 07/13/21 19:48 20:00 20:20 Temperature 36.8 C 36.8 C Heart Rate 113 H Heart Rate [ 123 H Monitoring electrodes] Respiratory 22 20 Rate Blood Pressure Blood Pressure 115/66 [Right Radial artery] O2 Saturation 100 07/13/21 07/13/21 07/13/21 21:00 21:15 22:00 Temperature Heart Rate Heart Rate [ 127 H 121 H Monitoring electrodes] Respiratory 21 22 Rate Blood Pressure 153/119 H Blood Pressure 109/78 102/67 [Right Radial artery] O2 Saturation 99 95 07/13/21 07/14/21 07/14/21 23:00 00:00 01:00 Temperature Heart Rate Heart Rate [ 116 H 119 H 114 H Monitoring electrodes] Respiratory 24 24 24 Rate Blood Pressure Blood Pressure 98/66 95/65 99/80 [Right Radial artery] O2 Saturation 98 98 96 07/14/21 07/14/21 07/14/21 02:00 03:19 04:00 Temperature Heart Rate Heart Rate [ 118 H 118 H 112 H Monitoring electrodes] Respiratory 23 25 H 21 Rate Blood Pressure Blood Pressure 113/90 H 90/61 85/59 L [Right Radial artery] O2 Saturation 93 94 97 07/14/21 07/14/21 07/14/21 05:00 06:00 07:00 Temperature 36.7 C Heart Rate Heart Rate [ 112 H 116 H 115 H Monitoring electrodes] Respiratory 19 23 22 Rate Blood Pressure Blood Pressure 78/53 L 85/71 L 98/71 [Right Radial artery] O2 Saturation 96 89 L 91 L 07/14/21 07/14/21 07/14/21 07:32 08:00 09:00 Temperature Heart Rate 119 H Heart Rate [ 126 H 126 H Monitoring electrodes] Respiratory 25 H 25 H 25 H Rate Blood Pressure Blood Pressure 99/71 86/58 L [Right Radial artery] O2 Saturation 91 L 91 L 07/14/21 07/14/21 07/14/21 10:00 10:39 11:00 Temperature Heart Rate Heart Rate [ 121 H 129 H 141 H Monitoring electrodes] Respiratory 21 25 H Rate Blood Pressure Blood Pressure 87/69 L 91/67 99/72 [Right Radial artery] O2 Saturation 93 93 07/14/21 07/14/21 07/14/21 11:29 12:00 12:20 Temperature Heart Rate 128 H 131 H Heart Rate [ 131 H Monitoring electrodes] Respiratory 25 H 25 H Rate Blood Pressure Blood Pressure 94/65 [Right Radial artery] O2 Saturation 100 07/14/21 07/14/21 07/14/21 13:00 14:00 15:00 Temperature 36.5 C Heart Rate Heart Rate [ 136 H 124 H 110 H Monitoring electrodes] Respiratory 26 H 26 H 24 Rate Blood Pressure Blood Pressure 81/69 L 98/69 98/77 [Right Radial artery] O2 Saturation 97 97 96 07/14/21 07/14/21 15:47 16:00 Temperature 36.5 C 36.5 C Heart Rate Heart Rate [ 122 H Monitoring electrodes] Respiratory 25 H Rate Blood Pressure Blood Pressure 101/75 [Right Radial artery] O2 Saturation 95 Oxygen O2 Source BIPAP Oxygen Flow Rate 4 I&O (Last 24 Hrs): Intake and Output Totals x24h 07/12/21 07/13/21 07/14/21 23:59 23:59 23:59 Intake Total 4836.2 2965.000 2848.333 Output Total 320 1485 542 Balance 4516.2 4536.594 1003.333 General: Other (Lethargic) HEENT: Mucous membr. moist/pink Neck: Supple, Other (Cannot eval her JVP due to morbid obesity) Neuro: Non Focal, Other (Lethargic) Cardiovascular: Other (Tachy, irreg, cannot adequately hear heart sounds or murmur due to morbid obesity) Respiratory: Other (In moderate resp distress, distant breath sounds (due to morbid obesity). Brown rash under both large, pendulous breatsts.) Abdomen: Other (Obese with pannus and brown rash below pannus in both groins) Extremities: Other (2+ edema, both shins are wrapped.) - Results Results: Laboratory Results WBC 10.4 x10^3/uL (4.8-10.8) 07/14/21 08: RBC 3.77 10^6/uL (4.20-5.40) L 07/14/21 08:22 Hgb 10.9 g/dL (12.0-16.0) L 07/14/21 08:22 Hct 37.6 % (37.0-47.0) 07/14/21 08: MCV 99.7 fL (81.0-99.0) H 07/14/21 08: MCH 28.9 pg (27.0-31.0) 07/14/21 08: MCHC 29.0 g/dL (32.0-36.0) L 07/14/21 08: RDW 19.4 % (12.0-15.0) H 07/14/21 08:22 Plt Count 235 10^3/uL (130-450) 07/14/21 08:22 MPV 10.1 fL (7.9-10.8) 07/14/21 08:22 Neut # (Auto) 7.2 10^3/uL (1.5-6.6) H 07/14/21 08:22 Lymph # (Auto) 1.8 10^3/uL (1.5-3.5) 07/14/21 08:22 [place] # (Auto) 1.1 10^3/uL (0.0-1.0) H 07/14/21 08:22 Eos # (Auto) 0.1 10^3/uL (0.0-0.7) 07/14/21 08:22 Baso # (Auto) 0.1 10^3/uL (0.0-0.1) 07/14/21 08: Absolute Nucleated RBC 0.00 x10^3/uL 07/14/21 08: Nucleated RBC % 0.0 /100WBC 07/14/21 08:22 Bld Gas Analysis Time 1549 07/14/21 15:42 Sample Site LEFT RADIAL 07/14/21 15:42 ABG pH 7.25 (7.35-7.45) L 07/14/21 15:42 ABG pCO2 50 mmHg (34-45) H 07/14/21 15:42 ABG pO2 80 mmHg (80-100) 07/14/21 15:42 ABG HCO3 21.5 mmol/L (22.0-26.0) L 07/14/21 15:42 ABG Total CO2 23.0 MMOL/L (21.0-29.0) 07/14/21 15:42 ABG O2 Saturation 95 % (94-98) 07/14/21 15:42 ABG Base Excess -5.9 mmol/L (-2.0-3.0) L 07/14/21 15:42 Ba Test POSITIVE 07/14/21 15:42 Respiration Rate 18 b/min 07/14/21 15:42 O2 Delivery Device BiPAP 07/14/21 15:42 O2 Liters/Min 3.00 LPM 07/14/21 11:45 Vent Mode SYNCHRONOUS/TIMES 07/14/21 15:42 FiO2 30.00 07/14/21 15:42 EPAP 5 cmH2O 07/14/21 15:42 IPAP 12 cmH2O 07/14/21 15:42 Sodium 141 mmol/L (135-145) 07/14/21 08:22 Potassium 5.1 mmol/L (3.5-5.0) H 07/14/21 08:22 Chloride 106 mmol/L (101-111) 07/14/21 08:22 Carbon Dioxide 27 mmol/L (21-32) 07/14/21 08:22 Anion Gap 8.0 (6-13) 07/14/21 08:22 BUN 37 mg/dL (6-20) H 07/14/21 08:22 Creatinine 1.7 mg/dL (0.4-1.0) H 07/14/21 08:22 Estimated GFR (MDRD) 29 (>89) L 07/14/21 08:22 Glucose 136 mg/dL (70-100) H 07/14/21 08:22 Estimat Average Glucose 174 mg/dL (70-100) H 07/12/21 05:33 Hemoglobin A1c % 7.7 % (4.27-6.07) H 07/12/21 05:33 Lactic Acid 1.6 mmol/L (0.5-2.2) 07/12/21 08:54 Calcium 8.7 mg/dL (8.5-10.3) 07/14/21 08:22 Magnesium 2.5 mg/dL (1.7-2.8) 07/11/21 19:45 Total Bilirubin 0.9 mg/dL (0.2-1.0) 07/11/21 19:45 AST 13 IU/L (10-42) 07/11/21 19:45 ALT 18 IU/L (10-60) 07/11/21 19:45 Alkaline Phosphatase 88 IU/L (42-121) 07/11/21 19:45 Troponin I High Sens 13.5 ng/L (2.3-14.8) 07/12/21 05:33 B-Natriuretic Peptide 143 pg/mL (5-100) H 07/11/21 19:45 Total Protein 6.6 g/dL (6.7-8.2) L 07/11/21 19:45 Albumin 3.3 g/dL (3.2-5.5) 07/11/21 19:45 Globulin 3.3 g/dL (2.1-4.2) 07/11/21 19:45 Albumin/Globulin Ratio 1.0 (1.0-2.2) 07/11/21 19:45 Lipase 39 U/L (22-51) 07/11/21 19:45 TSH 2.02 uIU/mL (0.34-5.60) 07/12/21 05:33 Urine Color YELLOW 07/13/21 13:00 Urine Clarity SL. CLOUDY (CLEAR) 07/13/21 13:00 Urine pH 5.5 PH (5.0-7.5) 07/13/21 13:00 Ur Specific [place] 1.025 (1.002-1.030) 07/13/21 13:00 Urine Protein NEGATIVE mg/dL (NEGATIVE) 07/13/21 13:00 Urine Glucose (UA) NEGATIVE mg/dL (NEGATIVE) 07/13/21 13:00 Urine Ketones NEGATIVE mg/dL (NEGATIVE) 07/13/21 13:00 Urine Occult Blood LARGE (NEGATIVE) H 07/13/21 13:00 Urine Nitrite NEGATIVE (NEGATIVE) 07/13/21 13:00 Urine Bilirubin NEGATIVE (NEGATIVE) 07/13/21 13:00 Urine Urobilinogen 0.2 (NORMAL) E.U./dL (NORMAL) 07/13/21 13:00 Ur Leukocyte Esterase NEGATIVE (NEGATIVE) 07/13/21 13:00 Urine RBC TNTC /HPF (0-5) H 07/13/21 13:00 Urine WBC 6-10 /HPF (0-5) H 07/13/21 13:00 Ur Squamous Epith Cells RARE Squamous (<= Few) 07/13/21 13:00 Urine Bacteria Rare /HPF (None Seen) 07/13/21 13:00 Urine Culture Comments NOT INDICATED 07/13/21 13:00 Nasal Adenovirus (PCR) NOT DETECTED 07/11/21 19:58 Nasal B. parapertussis DNA (PCR) NOT DETECTED 07/11/21 19:58 Nasal Coronavir 229E PCR NOT DETECTED 07/11/21 19:58 Nasal Coronavir HKU1 PCR NOT DETECTED 07/11/21 19:58 Nasal Coronavir NL63 PCR NOT DETECTED 07/11/21 19:58 Nasal Coronavir OC43 PCR NOT DETECTED 07/11/21 19:58 Nasal Enterovir/Rhinovir PCR NOT DETECTED 07/11/21 19:58 Nasal Influenza B PCR NOT DETECTED 07/11/21 19:58 Nasal Influenza A PCR NOT DETECTED 07/11/21 19:58 Nasal Parainfluen 1 PCR NOT DETECTED 07/11/21 19:58 Nasal Parainfluen 2 PCR NOT DETECTED 07/11/21 19:58 Nasal Parainfluen 3 PCR NOT DETECTED 07/11/21 19:58 Nasal Parainfluen 4 PCR NOT DETECTED 07/11/21 19:58 Nasal RSV (PCR) NOT DETECTED 07/11/21 19:58 Nasal Screen MRSA (PCR) NEGATIVE (NEGATIVE) 07/13/21 09:30 Nasal B.pertussis DNA PCR NOT DETECTED 07/11/21 19:58 Nasal C.pneumoniae (PCR) NOT DETECTED 07/11/21 19:58 Jesús Human Metapneumo PCR NOT DETECTED 07/11/21 19:58 Nasal M.pneumoniae (PCR) NOT DETECTED 07/11/21 19:58 Nasal SARS-CoV-2 (PCR) NOT DETECTED 07/11/21 19:58 Ref Lab Test Result REPORT 07/13/21 04:32 - Procedures Procedures: Procedures RESECTION OF GALLBLADDER, PERCUTANEOUS ENDOSCOPIC APPROACH (12/29/18)
[2021-07-14] MEDS ORDERED: AMIODARONE 150 MG/3 ML VIAL IVP STA (20:45)
[2021-07-14] MEDS ORDERED: ACETAMINOPHEN 650 MG SUPP PR PRN (20:47)
[2021-07-14 20:58] LABS: ABG BASE EXCESS -0.8 mmol/L (-2.0-3.0); ABG HCO3 22.9 mmol/L (22.0-26.0); ABG OXYGEN SATURATION 99 % (94-98); ABG PCO2 34 mmHg (34-45); ABG PH 7.44 (7.35-7.45); ABG PO2 125 mmHg (80-100); ABG TCO2 23.9 MMOL/L (21.0-29.0)
[2021-07-14 20:59] LABS: ABG MODE OF VENTILATION ASSIST/CONTROL; ABG RESPIRATORY RATE 22 b/min; ALLEN TEST POSITIVE
[2021-07-14] MEDS ORDERED: FAMOTIDINE 20 MG/2 ML VIAL IVP SCH ×2 (21:00→22:00)
[2021-07-14] MEDS ORDERED: fentaNYL 2,500 MCG in SODIUM CHLORIDE 0.9% 200 ML IV SCH (21:00)
[2021-07-14] MEDS ORDERED: AMIODARONE 150 MG/100 ML 100 ML IV ONE (21:24)
[2021-07-14] MEDS: CHLORHEXIDINE GLUCONATE 15 ML UDC PO SCH (21:49)
[2021-07-14] MEDS: AMIODARONE 360 MG/200 ML 200 ML IV SCH (21:56)
[2021-07-14] MEDS ORDERED: PIPERACILLIN/TAZOBACTAM 3.375 GM in SODIUM CHLORIDE 0.9% MINIBAG 100 ML IV ONE (22:00)
[2021-07-14] MEDS ORDERED: AMOXICILLIN 250 MG CAPSULE PO SCH (22:00)
[2021-07-14] MEDS ORDERED: methylPREDNISolone SUCCINATE 40 MG/ML VIAL IVP SCH (22:00)
[2021-07-14] MEDS: INSULIN GLARGINE 300 UNIT/3 ML PEN SUBQ SCH (22:03)
[2021-07-14] MEDS ORDERED: SODIUM CHLORIDE 0.9% 500 ML IV PRN (22:33)
[2021-07-14] MEDS ORDERED: SODIUM CHLORIDE FLUSH 0.9% 10 ML SYRINGE IVP PRN (22:33)
--- NOTE | 2021-07-14 23:32 | ANESTHESIA PROCEDURE NOTE ---
Anesth Central Line Template - Central Line Central Line Preparation: Consent Obtained (From Patient's adult son), Time out completed, Ultrasound used, Sterile prep and drape Central line location: Right IJ Central line type: Triple lumen Central line catheter tip site resides: Superior vena cava (SVC) Central line aftercare: Chlorhexidine disc placed, Secured, Placement confirmed, No pneumothorax, No complications, Pt tolerated well Other Info/Details: Right IJ central line placed under US guidance. Full sterile gown, gloves and drape. All ports aspirate and flush with ease. Chest xray shows tip in the SVC. Line secured with suture, biopatch and opsite.
--- NOTE | 2021-07-14 23:34 | CONSULTATION NOTE ---
Consultation Report: Right radial arterial line placed per hospitalist request. Artery identified under ultrasound and a 20G arterial line inserted. Adequate wave form. Flushed with ease. Line secured with steri-strips and opsite.
[2021-07-15] MEDS: SODIUM CHLORIDE 0.9% 1,000 ML IV SCH ×2 (00:36→07:34)
[2021-07-15] MEDS: SODIUM CHLORIDE FLUSH 0.9% 10 ML SYRINGE IVP SCH ×2 (01:39→09:18)
[2021-07-15] MEDS: PANTOPRAZOLE 40 MG VIAL IVP SCH ×2 (01:46→09:18)
[2021-07-15] MEDS: SODIUM CHLORIDE FLUSH 0.9% 10 ML SYRINGE IVP PRN (01:46)
[2021-07-15] MEDS ORDERED: PIPERACILLIN/TAZOBACTAM 3.375 GM in SODIUM CHLORIDE 0.9% MINIBAG 100 ML IV SCH (02:00)
[2021-07-15] MEDS: MIDAZOLAM DRIP 50 MG/100 ML BAG IV SCH ×5 (02:05→15:21)
[2021-07-15 02:17] LABS: GLUCOSE, URINE (UA) NEGATIVE (NEGATIVE); KETONES,URINE (UA) NEGATIVE (NEGATIVE); LEUKOCYTE ESTERASE, URINE MODERATE (NEGATIVE); NITRITE,URINE NEGATIVE (NEGATIVE); OCCULT BLOOD,URINE LARGE (NEGATIVE); PROTEIN,URINE 30 mg/dL (NEGATIVE); UROBILINOGEN,URINE 0.2 (NORMAL) E.U./dL (NORMAL)
[2021-07-15 02:19] LABS: BILIRUBIN,URINE NEGATIVE (NEGATIVE); CLARITY,URINE SL. CLOUDY (CLEAR)
[2021-07-15 02:23] LABS: BACTERIA,URINE Moderate /HPF (None Seen); SQUAMOUS EPITHELIAL CELL,UR NONE SEEN (<= Few); WBC,URINE >25 /HPF (0-5)
[2021-07-15 05:40] LABS: BASOPHILS # (AUTO) 0.1 10^3/uL (0.0-0.1); BASOPHILS % (AUTO) 0.5 %; EOSINOPHILS # (AUTO) 0.2 10^3/uL (0.0-0.7); EOSINOPHILS % (AUTO) 2.1 %; HCT - HEMATOCRIT 35.2 % (37.0-47.0); HGB - HEMOGLOBIN 10.4 g/dL (12.0-16.0); LYMPHOCYTES # (AUTO) 1.2 10^3/uL (1.5-3.5); LYMPHOCYTES % (AUTO) 12.4 %; MEAN CORPUSCULAR HEMOGLOBIN 28.6 pg (27.0-31.0); MEAN CORPUSCULAR HGB CONC 29.5 g/dL (32.0-36.0); MEAN CORPUSCULAR VOLUME 96.7 fL (81.0-99.0); MEAN PLATELET VOLUME 9.9 fL (7.9-10.8); MONOCYTES % (AUTO) 10.4 %; NEUTROPHILS # (AUTO) 6.9 10^3/uL (1.5-6.6); NEUTROPHILS % (AUTO) 74.4 %; PLT - PLATELET COUNT 240 10^3/uL (130-450); RED BLOOD COUNT 3.64 10^6/uL (4.20-5.40); RED CELL DISTRIBUTION WIDTH 18.9 % (12.0-15.0); WHITE BLOOD COUNT 9.3 x10^3/uL (4.8-10.8)
[2021-07-15 05:49] LABS: CALCIUM 8.4 mg/dL (8.5-10.3); CREATININE 1.6 mg/dL (0.4-1.0); POTASSIUM 4.6 mmol/L (3.5-5.0)
[2021-07-15 06:22] LABS: ABG HCO3 21.5 mmol/L (22.0-26.0); ABG PCO2 36 mmHg (34-45); ABG PO2 80 mmHg (80-100); ABG TCO2 22.6 MMOL/L (21.0-29.0)
[2021-07-15] MEDS: INSULIN REGULAR HUMAN 300 UNIT/3 ML VIAL SUBQ SCH ×2 (06:22→12:19)
[2021-07-15 06:23] LABS: ABG BASE EXCESS -2.8 mmol/L (-2.0-3.0); ABG MODE OF VENTILATION ASSIST/CONTROL; ABG OXYGEN SATURATION 96 % (94-98); ABG RESPIRATORY RATE 22 b/min
[2021-07-15] MEDS: LEVOTHYROXINE 100 MCG TABLET PO SCH (06:59)
[2021-07-15] MEDS: BUDESONIDE 0.5 MG/2 ML NEB INH SCH (07:53)
[2021-07-15] MEDS: FORMOTEROL FUMARATE NEB 20 MCG/2 ML INH SCH (07:53)
[2021-07-15] MEDS: IPRATROPIUM/ALBUTEROL 3 ML NEB INH SCH ×2 (07:53→11:24)
[2021-07-15] MEDS ORDERED: ENOXAPARIN 150 MG/ML SYRINGE SUBQ SCH (08:00)
[2021-07-15] MEDS ORDERED: LINEZOLID 600 MG/300 ML 600 MG/300 ML BAG IV SCH (08:00)
[2021-07-15] MEDS: MEROPENEM 1 GM in SODIUM CHLORIDE 0.9% MINIBAG 100 ML IV SCH ×2 (08:36→15:02)
[2021-07-15] MEDS: CHLORHEXIDINE GLUCONATE 15 ML UDC PO SCH (08:37)
[2021-07-15] MEDS: NYSTATIN POWDER 15 GM TOP SCH (08:37)
--- NOTE | 2021-07-15 08:40 | XRAY Report ---
PROCEDURE: Chest for Line Placement INDICATIONS: Central line oral gastric tube placement TECHNIQUE: One view of the chest was acquired. COMPARISON: CXR earlier today., 07/11/2021., 05/11/2019. FINDINGS: Surgical changes and devices: Endotracheal tube in the mid trachea. Enteric tube coursing into the st omach. Right IJ central venous line with the tip at the lower third of the SVC.. Lungs and pleura: No pleural effusions or pneumothorax. Low lung volumes. Prominent pulmonary markin gs bilaterally with a central predominance appears slightly worsened. Mediastinum: Mediastinal contours appear grossly unchanged. Heart size is within normal limits. Bones and chest wall: No suspicious bony lesions. Overlying soft tissues appear unremarkable. IMPRESSION: Tubes and lines project in the expected location. Right IJ central venous line with the tip at the lo wer third of the SVC. Low lung volumes. Bilateral pulmonary markings with a central predominance appears slightly worsened. Suspect fluid overload/CHF. Less likely pneumonia. This report is concordant with the overnight preliminary interpretation. Reviewed by: Riki Sharif MD on 07/15/2021 7:39 AM [facility] Approved by: Riki Sharif MD on 07/15/2021 7:39 AM [facility] Station ID: [id number]
[2021-07-15] MEDS ORDERED: PANTOPRAZOLE 40 MG VIAL IV SCH (09:00)
[2021-07-15] MEDS: AMIODARONE 360 MG/200 ML 200 ML IV SCH (09:17)
--- NOTE | 2021-07-15 13:33 | Discharge Plan ---
Discharge Plan Problem Reviewed?: Yes Disposition: 02 Transfer Acute Care Hosp Condition: Stable No Smoking: If you smoke, Please STOP! Call for help. Follow-up with: Michael Chew MD [Primary Care Provider] -
--- NOTE | 2021-07-15 13:34 | DISCHARGE SUMMARY ---
Discharge Summary Admit Date: 07/11/21 Discharge Date: 07/15/21 Discharging Provider: Dr Taryn Prakash Primary Care Provider: Dr Michael Chew Code Status: Attempt Resuscitation Condition at Discharge: Serious Discharge Disposition: 02 Transfer Acute Care [facility] History of Present Illness: From the admission H&P of Dr Shelia Torres: This is a 71-year-old morbidly obese white female who has COPD requiring nighttime oxygen, diabetes, and has been short of breath with increasing regularity and severity since April of this year. When she was seen in April in the emergency room she was given a dose of Lasix, improved, and went home. She has been seeing her primary care provider and has continued to have increasing shortness of breath/leg edema and he put her on regular Lasix in the last 2 weeks. She cannot get around very well has been spending more more time sitting down. In spite of the lasix, she has had increasing leg edema, increasing dysp kings on exertion. The leg edema has not really improved. The only thing that is been helping is when she takes her oxygen now during the day (she only usually takes it at night) and using her inhalers. She really feels like this is her emphysema acting up but she can't figure out why because she is taking her inhalers and the steroids as instructed. She denies fever, chills, phlegm production. She denies chest pain or palpitations and does not have any history of CAD, arrhythmia or valvular heart disease. She has been on steroids for >3 weeks off and on. Even with the lasix the edema did not improve and there were days that she only urinated once or twice. Food is ok but doesn't have much of an appetite. No nausea. No emesis, no diarrhea. She denies flank pain, urgency, frequency, hematuria. She finally called the ambulance today because her edema was getting so painful and her legs were getting red and hot over her shins. The legs cramps in her calves have been terrible. She has been sitting so much the last few that that her heels are feeling exquisitely tender. She has not been able to take a bath for 3 weeks because she was fearful of falling in the bathroom due to KRAUSE. In the emergency room she was found to be tachycardic with new onset atrial fibrillation. She is followed by Dr. Michael Chew so do we do not have access to her medical records. She does not have an echocardiogram in our system. Her troponin was 13.6. Of note her baseline creatinine is 0.9 and she is 2.5 today. BNP is 143. Hemoglobin shows mild anemia at 11.4 where her baseline is 12.3. White cell count is normal. With the tachycardia of 127, her blood pressure was initially 92/55. She has been given a liter of fluid and her blood pressures come up to 118/50. In making sure we were not dealing with DVTs, had stat ultrasounds done and the preliminary report (final must be reviewed) is that of negative DVTs. CT angiogram is unable to be done because of the creatinine and GFR. She received 2 liters of fluid in the ER with diltiazem to slow her heart rate and has already started to feel much better. She is hungry and asking for some food. She is now placed in Observation status for control of her atrial fibrillation rate as well as rule out DVT and treatment of probable cor pulmonale acute exacerbation. - HOSPITAL COURSE Hospital Course: (1) Acute respiratory failure with hypoxia and hypercarbia She was admitted from Observation to Inpatient status, due to ongoing hypotension, hypoxia and Afib with RVR. A VQ scan was ordered to R/O PE, but she could not tolerate lying supine. She was put on therapeutic Lovenox to empirically treat a PE and for stroke prophylaxis in (new) Afib. She was also treated with nebs, steroids, Mucinex, and supplemental O2. 2) Respiratory failure requiring intubation On Day #3, her mentation was more groggy and ABG showed respiratory acidosis. She was tiring on O2 via oximizer and she was started on BiPAP. Subsequent ABGs continued to show CO2 retention and respiratory acidosis and she was intubated, after calling her DPOA and caregiver. The patient receently had texted to the DPOA "Do not let them put a tube in me". As there were no other Advance Directives or any other prior discussion about the patient's wishes regarding goals of care if she should be in critical condition or if she should be needing a ventilator, the DPOA approved of intubation. After being put on the vent, the patient's peak airway pressures were excessive, at 50-100mmHg. The patient needed recurrent repositioning in bed using a Hover mat. Because of her morbid obesity, this position in bed allowed her shoulders to be more open to expand her lungs better. An arterial line was inserted. 3) Hypotension Despite IV fluids and fluid boluses, her blood pressure remained below 100 mmHg systolic. She was warm and dry and mentating normally. She usually carries a diagnosis of hypertension, but her blood pressure meds were on hold. Diuretics on hold. She ruled out for SD by troponins, her lactic acid was normal. She wa s felt to be volume depleted (from recent diuresis) and from being very intravascular volume sensitive with her Cor Pulmonale (see below). An Echo done here showed an underfilled left ventricle that was hypercontractile consistent with volume depletion. During intubation, Dr Durham checked her IVC, which was still underfilled. Her blood pressure cuff on the upper arm was not reliable because it did not encircle her morbidly obese arm, thus we were using a pediatric cuff over the wrist which may have been more accurate. After intubation, she received an arterial line and she was started on Levophed drip. 4) A. fib with RVR This was new onset Afib for her, unknown duration, since she reported no "palpitaions". The rapid rate was partly from her volume depletion from diuretics and her low blood pressure was partly from her rapid rate, not allowing adequate LV filling (decrease preload), to support a better blood pressure. She was put on IV fluids qne got Dig. Cardizem drip was ordered, but on hold until blood pressure was over 100. She was not a candidate for cardioversion without having a DIAZ to R/O clot, since we do not know how long she has been in A. fib. She was on therapeutic Lovenox. She was kindly accepted in transfer to the [employer] [facility] at [facility]. 5) Cellulitis of both lower extremities She had been empirically started on po Dicloxacillin (chosen due to a Cephalosporin allergy). After intubation, broad spectrum coverage was empirically stared. Dressing changes (wound care) by nursing 6) COPD exacerbation Although we could not hear wheezing or prolonged expiratory phase (likely due to her morbid obesity), the patient felt that she was in a COPD exacerbation. She was treated with nebulizers, steroids, Mucinex, O2 per oximizer then ventilator support. 7) Acute renal failure Her creatinine is normally 0.9. At admission, her creatinine was 2.4. Her recent history of diuretic use supported that she probably had HARISH from volume depletion causing ATN. With iv fluids, this slowly was improving. The retroperitoneal US showed no obstruction. 8) Diabetes mellitus A1c was 7.7. We ordered Lantus insulin, sliding scale insulin, fingerstick checks of glucose and hypoglycemia protocol. 9) Morbid obesity with BMI of 60-69 As per Hx. The son reported that she mostly sits all day. We suspected she also has obesity-hypoventilation syndrome 10) Cor pulmonale This was suspected and was seen on Echo done here, with a huge RV and poor RV function. Likely her probable obesity-hypoventilation plus COPD have contributed to this finding. She will be very intravascular volume sensitive, therefore. This also gives her a higher morbidity and mortality risk. 11) Candidal intertrigo Nystatin was ordered to apply intertriginous (in both groins, under both breasts) 12) Adnexal mass She had retroperitoneal ultrasound done to eval the HARISH. The left adnexa was reported to have an echogenic focus representing a mass, or it could be artifact. A CT was recommended for further evaluation but she could not lie flat. This will need further work-up going forward. - ALLERGIES Allergies/Adverse Reactions: Allergies Allergy/AdvReac Type Severity Reaction Status Date / Time cefaclor [From [facility]] Allergy Severe Edema Verified 07/11/21 19:27 - MEDICATIONS Home Medications: Ambulatory Orders Medication Instructions Recorded Confirmed Albuterol Sulfate [Proair Hfa 1 - 2 puffs INH Q4H PRN 07/18/17 07/12/21 Inhaler] Cholecalciferol (Vitamin D3) 3,000 unit PO DAILY 07/18/17 07/12/21 [Vitamin D3] Glucosamine/D3/Boswellia Maddison 1 each PO DAILY 12/25/18 07/12/21 [Osteo Bi-Flex Tablet] Multivitamin [Multiple Vitamins] 1 each PO DAILY 12/25/18 07/12/21 Semaglutide [Ozempic] 0.25 mg SQ .QWEEK 12/25/18 07/12/21 Levothyroxine [Synthroid] 200 mcg PO QDAC 12/29/18 07/12/21 Losartan [Cozaar] 100 mg PO DAILY 07/12/21 07/12/21 Simvastatin [Zocor] 5 mg PO QPM 07/12/21 07/12/21 hydroCHLOROthiazide [Hydrodiuril] 25 mg PO DAILY 07/12/21 07/12/21 - PHYSICAL EXAM AT DISCHARGE General Appearance: positive: Other (Sedated on te vent) Eyes Bilateral: positive: Normal inspection ENT: positive: Other (Moist oral mucosa, ET tube in place) Neck: positive: Other (Obese) Respiratory: positive: Other (On the vent) Cardiovascular: positive: Irregularly irregular, Other (heart sounds distant) Abdomen: positive: Other (Obese with pnnus) Skin: positive: Skin rash (in both groins under the large pannus and below both large, pendulous breasts) Extremities: positive: Other (2+ edema and calves wrapped) Neurologic/Psychiatric: positive: Other (Sedated) - LABS Result Diagrams: 07/15/21 05:00 07/15/21 05:00 - FOLLOW UP Follow Up: To be determined after hospitalization at [facility] - TIME SPENT Time Spent in Discharge (Minutes): 70
[2021-07-15 16:13] VITALS: BP 117/80
== END 2021-07-15 15:45 | disposition short-term general hospital (02) | DRG 308 ==
LOC: EDUNIT# → ED 19:17 → MS2 22:14 → OBSVTOIN 07-12 06:25 → ICU 07-12 06:40
PROVIDERS: ADMIT Specialist; ATTEND Internal Medicine
PROC: 5A1935Z Respiratory Ventilation, Less than 24 Consecutive Hours (ICD-10-PCS; principal; 2021-07-14)
PROC: 0BH17EZ Insertion of Endotracheal Airway into Trachea, Via Natural or Artificial Opening (ICD-10-PCS; 2021-07-14)
PROC: 03HY32Z Insertion of Monitoring Device into Upper Artery, Percutaneous Approach (ICD-10-PCS; 2021-07-14)
PROC: 02HV33Z Insertion of Infusion Device into Superior Vena Cava, Percutaneous Approach (ICD-10-PCS; 2021-07-14)
DX: I48.91 Unspecified atrial fibrillation (principal); J96.02 Acute respiratory failure with hypercapnia; R60.0 Localized edema; I11.0 Hypertensive heart disease with heart failure; I50.810 Right heart failure, unspecified; E11.621 Type 2 diabetes mellitus with foot ulcer; L97.421 Non-pressure chronic ulcer of left heel and midfoot limited to breakdown of skin; S90.31XA Contusion of right foot, initial encounter; X58.XXXA Exposure to other specified factors, initial encounter; J96.01 Acute respiratory failure with hypoxia; N17.0 Acute kidney failure with tubular necrosis; J44.1 Chronic obstructive pulmonary disease with (acute) exacerbation; Z68.44 Body mass index [BMI] 60.0-69.9, adult; Z20.822 Contact with and (suspected) exposure to COVID-19; L03.116 Cellulitis of left lower limb; L03.115 Cellulitis of right lower limb; E66.2 Morbid (severe) obesity with alveolar hypoventilation; I10 Essential (primary) hypertension; I27.81 Cor pulmonale (chronic); E11.51 Type 2 diabetes mellitus with diabetic peripheral angiopathy without gangrene; I95.9 Hypotension, unspecified; B37.2 Candidiasis of skin and nail; E86.9 Volume depletion, unspecified; T50.2X5A Adverse effect of carbonic-anhydrase inhibitors, benzothiadiazides and other diuretics, initial encounter; E03.9 Hypothyroidism, unspecified; K21.9 Gastro-esophageal reflux disease without esophagitis; R32 Unspecified urinary incontinence; H54.7 Unspecified visual loss; F40.240 Claustrophobia; N83.9 Noninflammatory disorder of ovary, fallopian tube and broad ligament, unspecified; Z79.84 Long term (current) use of oral hypoglycemic drugs; Z79.52 Long term (current) use of systemic steroids; Z79.899 Other long term (current) drug therapy; Z87.891 Personal history of nicotine dependence
CPT/HCPCS: 36415; 36600; 71045; 73610; 76770; 80048; 80053; 81001; 81599; 82550; 82803; 83036; 83605; 83690; 83735; 83880; 84443; 84484; 85025; 85610; 87040; 87077; 87086; 87150; 87181; 87631; 93005; 93306; 93970; 94002; 94003; 94640; 94660; 96372; 96374; 96375; 96376; 99284; 99285; A6250; A9270; J0282; J0330; J1650; J1815; J2020; J2185; J3010; J7120; J7626; 0202U; 80162; 94770